=== PATIENT | male | born 1960 ===

== ENCOUNTER 2020-12-19 13:52 | Inpatient (IN) ==
[2020-12-19 14:35] LABS: Basophils # 0.1 10*3/uL (0.0-0.2); Basophils % 0.4 % (0.0-0.8); Eosinophils # 0.1 10*3/uL (0.0-0.87); Eosinophils % 0.6 % (0.00-10.9); Hematocrit 31.2 VOL% (42.0-52.0); Hemoglobin 9.5 GM/DL (14.0-18.0); Immature Granulocytes % 0.8 %; Immature Granulocytes Absolute 0.11 #; Lymphocytes % 7.2 % (21.2-54.2); Mean Corpuscular HGB Conc 30.4 GM/DL (32-36); Mean Corpuscular Volume 75.9 FL (87-102); Mean Platelet Volume 9.5 FL (9.6-12.0); Monocytes % 9.8 % (1.7-12.7); NRBC # 0.02 10*3/uL; Neutrophils % 81.2 % (38.7-73.9); Platelet Count 282 T/CUMM (130-400); Red Blood Count 4.11 MC/CUMM (3.8-5.5); Red Cell Distribution Width 15.4 % (9.3-17.3); White Blood Count 14.1 T/CUMM (4-12)
[2020-12-19 15:06] LABS: Calcium 8.1 MG/DL (8.5-10.1); Osmolality,Calculated 271.2 MOS/KG (273-304)
[2020-12-19] MEDS ORDERED: VANCOMYCIN INJ 1,750 MG in SODIUM CHLORIDE 0.9% 250 ML IV ONE (15:17)
[2020-12-19] MEDS ORDERED: VANCOMYCIN INJ 1,750 MG in SODIUM CHLORIDE 0.9% 500 ML IV ONE (15:30)
[2020-12-19 15:42] LABS: Sedimentation Rate-Westergren 109 MM/HR (0-20)
[2020-12-19] MEDS ORDERED: DEXTROSE 50% 25 GM/50 ML VIAL IV PRN (15:57)
[2020-12-19] MEDS ORDERED: GLUCAGON 1 MG VIAL IM PRN (15:57)
[2020-12-19] MEDS ORDERED: MORPHINE 4 MG/1 ML VIAL IV PRN (15:57)
[2020-12-19] MEDS ORDERED: ONDANSETRON 4 MG/2 ML VIAL IV PRN (15:57)
[2020-12-19 16:49] LABS: Lymphocytes 5 % (20-55); Segmented Neutrophils 86 % (50-85); Total Cells Counted 100
[2020-12-19] MEDS: ENOXAPARIN 40 MG/0.4 ML SYRINGE SUBCUT SCH (18:14)
[2020-12-19] MEDS: SODIUM CHLORIDE 0.9% 1,000 ML IV SCH (18:15)
[2020-12-19] MEDS: PIPERACILLIN/TAZOBACTAM 3,375 MG in SODIUM CHLORIDE 0.9% 100 ML IV SCH (20:48)
[2020-12-20] MEDS: PIPERACILLIN/TAZOBACTAM 3,375 MG in SODIUM CHLORIDE 0.9% 100 ML IV SCH ×3 (03:30→20:24)
[2020-12-20 05:51] LABS: Basophils # 0.1 10*3/uL (0.0-0.2); Basophils % 0.6 % (0.0-0.8); Eosinophils # 0.3 10*3/uL (0.0-0.87); Hematocrit 28.4 VOL% (42.0-52.0); Hemoglobin 8.3 GM/DL (14.0-18.0); Immature Granulocytes % 1.4 %; Immature Granulocytes Absolute 0.17 #; Lymphocytes # 1.2 10*3/uL (1.4-4.0); Lymphocytes % 9.4 % (21.2-54.2); Mean Corpuscular HGB Conc 29.2 GM/DL (32-36); Mean Corpuscular Volume 78.2 FL (87-102); Mean Platelet Volume 9.9 FL (9.6-12.0); Monocytes % 10.7 % (1.7-12.7); NRBC # 0.02 10*3/uL; Neutrophils % 75.9 % (38.7-73.9); Platelet Count 263 T/CUMM (130-400); Red Blood Count 3.63 MC/CUMM (3.8-5.5); Red Cell Distribution Width 15.5 % (9.3-17.3); White Blood Count 12.3 T/CUMM (4-12)
[2020-12-20] MEDS ORDERED: VANCOMYCIN INJ 1,000 MG in SODIUM CHLORIDE 0.9% 250 ML IV SCH (06:00)
[2020-12-20 06:11] LABS: Calcium 7.4 MG/DL (8.5-10.1); Osmolality,Calculated 279.5 MOS/KG (273-304)
[2020-12-20 06:23] LABS: Band Neutrophils 5 % (0-10); Hypochromasia Slight; Lymphocytes 5 % (20-55); Microcytosis 1+; Platelet Estimate Normal; Segmented Neutrophils 83 % (50-85); Total Cells Counted 100
[2020-12-20] MEDS: SODIUM CHLORIDE 0.9% 1,000 ML IV SCH ×3 (08:44→17:11)
[2020-12-20] MEDS ORDERED: POTASSIUM CHLORIDE 20 MEQ TABLET PO ONE (09:06)
[2020-12-20] MEDS: PANTOPRAZOLE 40 MG TABLET PO SCH (09:52)
[2020-12-20] MEDS: VANCOMYCIN INJ 1,750 MG in SODIUM CHLORIDE 0.9% 500 ML IV SCH (09:54)
[2020-12-20] MEDS: ENOXAPARIN 40 MG/0.4 ML SYRINGE SUBCUT SCH (17:11)
[2020-12-20] MEDS: ACETAMINOPHEN 325 MG TABLET PO PRN (17:11)
[2020-12-21] MEDS: VANCOMYCIN INJ 1,750 MG in SODIUM CHLORIDE 0.9% 500 ML IV SCH ×2 (03:01→21:54)
[2020-12-21] MEDS: PIPERACILLIN/TAZOBACTAM 3,375 MG in SODIUM CHLORIDE 0.9% 100 ML IV SCH ×3 (04:41→20:54)
[2020-12-21] MEDS: SODIUM CHLORIDE 0.9% 1,000 ML IV SCH ×3 (08:01→18:08)
[2020-12-21] MEDS: POTASSIUM CHLORIDE 20 MEQ TABLET PO SCH ×2 (09:41→11:54)
[2020-12-21] MEDS: PANTOPRAZOLE 40 MG TABLET PO SCH (09:41)
[2020-12-21] MEDS: INSULIN LISPRO 100 UNIT/ML SUBCUT SCH ×3 (11:48→20:55)
[2020-12-21] MEDS: ENOXAPARIN 40 MG/0.4 ML SYRINGE SUBCUT SCH (17:56)
[2020-12-22] MEDS: SODIUM CHLORIDE 0.9% 1,000 ML IV SCH ×2 (01:17→09:13)
[2020-12-22] MEDS: PIPERACILLIN/TAZOBACTAM 3,375 MG in SODIUM CHLORIDE 0.9% 100 ML IV SCH ×3 (03:25→21:06)
[2020-12-22 05:09] LABS: Basophils # 0.1 10*3/uL (0.0-0.2); Basophils % 0.8 % (0.0-0.8); Eosinophils # 0.5 10*3/uL (0.0-0.87); Hematocrit 26.7 VOL% (42.0-52.0); Hemoglobin 8.1 GM/DL (14.0-18.0); Immature Granulocytes Absolute 1.31 #; Lymphocytes # 1.9 10*3/uL (1.4-4.0); Lymphocytes % 14.4 % (21.2-54.2); Mean Corpuscular HGB Conc 30.3 GM/DL (32-36); Mean Corpuscular Volume 77.8 FL (87-102); Mean Platelet Volume 9.2 FL (9.6-12.0); Monocytes % 8.3 % (1.7-12.7); NRBC # 0.09 10*3/uL; Neutrophils % 62.5 % (38.7-73.9); Platelet Count 288 T/CUMM (130-400); Red Blood Count 3.43 MC/CUMM (3.8-5.5); Red Cell Distribution Width 16.1 % (9.3-17.3); White Blood Count 13.2 T/CUMM (4-12)
[2020-12-22 05:32] LABS: Band Neutrophils 2 % (0-10); Eosinophils 2 % (0-10); Hypochromasia 1+; Lymphocytes 14 % (20-55); Microcytosis 1+; Nucleated Red Blood Cells 1 (0-5); Platelet Estimate Adequate; Segmented Neutrophils 70 % (50-85); Total Cells Counted 100
[2020-12-22 05:40] LABS: % Iron Saturation 8.1 % (18-50); Calcium 7.5 MG/DL (8.5-10.1); Ferritin 68.2 ng/ml (26-388); Osmolality,Calculated 279.3 MOS/KG (273-304); Potassium 3.2 MMOL/L (3.5-5.1)
[2020-12-22] MEDS ORDERED: SODIUM CHLORIDE 0.9% 1,000 ML IV PRN (08:23)
[2020-12-22] MEDS: INSULIN LISPRO 100 UNIT/ML SUBCUT SCH ×4 (08:51→20:53)
[2020-12-22] MEDS: PANTOPRAZOLE 40 MG TABLET PO SCH (09:14)
[2020-12-22] MEDS: FERROUS SULFATE ER 140 MG TABLET PO SCH ×2 (09:15→21:06)
[2020-12-22] MEDS: POTASSIUM CHLORIDE 20 MEQ TABLET PO SCH ×2 (11:55→15:20)
[2020-12-22] MEDS: VANCOMYCIN INJ 1,750 MG in SODIUM CHLORIDE 0.9% 500 ML IV SCH ×2 (19:22→21:06)
[2020-12-22] MEDS: ENOXAPARIN 40 MG/0.4 ML SYRINGE SUBCUT SCH (21:06)
[2020-12-23] MEDS: SODIUM CHLORIDE 0.9% 1,000 ML IV SCH ×3 (02:35→23:08)
[2020-12-23] MEDS: PIPERACILLIN/TAZOBACTAM 3,375 MG in SODIUM CHLORIDE 0.9% 100 ML IV SCH ×2 (03:34→18:46)
[2020-12-23 06:49] LABS: Basophils # 0.1 10*3/uL (0.0-0.2); Basophils % 0.7 % (0.0-0.8); Eosinophils # 0.5 10*3/uL (0.0-0.87); Eosinophils % 3.8 % (0.00-10.9); Hematocrit 31.5 VOL% (42.0-52.0); Hemoglobin 9.6 GM/DL (14.0-18.0); Immature Granulocytes % 9.7 %; Immature Granulocytes Absolute 1.26 #; Lymphocytes # 1.5 10*3/uL (1.4-4.0); Lymphocytes % 11.6 % (21.2-54.2); Mean Corpuscular HGB Conc 30.5 GM/DL (32-36); Mean Corpuscular Volume 78.9 FL (87-102); Mean Platelet Volume 9.7 FL (9.6-12.0); Monocytes % 7.1 % (1.7-12.7); NRBC # 0.11 10*3/uL; Neutrophils % 67.1 % (38.7-73.9); Platelet Count 330 T/CUMM (130-400); Red Blood Count 3.99 MC/CUMM (3.8-5.5); Red Cell Distribution Width 17.2 % (9.3-17.3)
[2020-12-23 07:07] LABS: Bilirubin,Total 0.6 MG/DL (0.2-1.0); Calcium 7.9 MG/DL (8.5-10.1); Osmolality,Calculated 275.4 MOS/KG (273-304); Potassium 3.5 MMOL/L (3.5-5.1); Total Protein 7.1 G/DL (6.4-8.2)
[2020-12-23 07:09] LABS: Eosinophils 3 % (0-10); Hypochromasia 1+; Lymphocytes 12 % (20-55); Microcytosis 1+; Nucleated Red Blood Cells 1 (0-5); Platelet Estimate Adequate; Segmented Neutrophils 83 % (50-85); Total Cells Counted 100
[2020-12-23] MEDS: FERROUS SULFATE ER 140 MG TABLET PO SCH ×2 (09:40→18:45)
[2020-12-23] MEDS: PANTOPRAZOLE 40 MG TABLET PO SCH (09:40)
[2020-12-23] MEDS: POTASSIUM CHLORIDE 20 MEQ TABLET PO SCH ×2 (09:40→20:51)
[2020-12-23] MEDS: INSULIN LISPRO 100 UNIT/ML SUBCUT SCH ×3 (12:26→20:44)
[2020-12-23] MEDS: VANCOMYCIN INJ 1,750 MG in SODIUM CHLORIDE 0.9% 500 ML IV SCH (14:30)
[2020-12-23] MEDS: ENOXAPARIN 40 MG/0.4 ML SYRINGE SUBCUT SCH (18:48)
[2020-12-24] MEDS: VANCOMYCIN INJ 1,750 MG in SODIUM CHLORIDE 0.9% 500 ML IV SCH ×2 (02:11→19:43)
[2020-12-24] MEDS: PIPERACILLIN/TAZOBACTAM 3,375 MG in SODIUM CHLORIDE 0.9% 100 ML IV SCH ×3 (03:07→22:53)
[2020-12-24 05:43] LABS: Basophils # 0.1 10*3/uL (0.0-0.2); Basophils % 0.6 % (0.0-0.8); Eosinophils # 0.4 10*3/uL (0.0-0.87); Eosinophils % 3.5 % (0.00-10.9); Hemoglobin 9.7 GM/DL (14.0-18.0); Immature Granulocytes % 9.2 %; Immature Granulocytes Absolute 1.11 #; Lymphocytes # 1.4 10*3/uL (1.4-4.0); Lymphocytes % 11.9 % (21.2-54.2); Mean Corpuscular HGB Conc 30.3 GM/DL (32-36); Mean Corpuscular Volume 80.2 FL (87-102); Mean Platelet Volume 9.2 FL (9.6-12.0); NRBC # 0.06 10*3/uL; Neutrophils % 66.8 % (38.7-73.9); Platelet Count 306 T/CUMM (130-400); Red Blood Count 3.99 MC/CUMM (3.8-5.5); Red Cell Distribution Width 17.3 % (9.3-17.3)
[2020-12-24 06:03] LABS: Calcium 7.5 MG/DL (8.5-10.1); Osmolality,Calculated 278.3 MOS/KG (273-304); Potassium 3.8 MMOL/L (3.5-5.1)
[2020-12-24 06:05] LABS: Eosinophils 1 % (0-10); Hypochromasia 1+; Lymphocytes 11 % (20-55); Microcytosis 1+; Platelet Estimate Adequate; Segmented Neutrophils 81 % (50-85); Total Cells Counted 100
[2020-12-24] MEDS ORDERED: LIDOCAINE 2% 5 ML VIAL ONE (07:41)
[2020-12-24] MEDS ORDERED: propofoL 200 MG/20 ML VIAL IV ONE (07:41)
[2020-12-24] MEDS ORDERED: MIDAZOLAM 2 MG/2 ML VIAL ONE (07:42)
[2020-12-24] MEDS ORDERED: fentaNYL 100 MCG/2 ML VIAL ONE (07:42)
[2020-12-24] MEDS ORDERED: FAMOTIDINE 20 MG/2 ML VIAL IV ONE (08:25)
[2020-12-24] MEDS ORDERED: HYDROmorphone 2 MG/1 ML VIAL ONE (08:45)
[2020-12-24] MEDS ORDERED: ACETAMINOPHEN INJ 1,000 MG/100 ML VIAL IV ONE (08:58)
[2020-12-24] MEDS ORDERED: ONDANSETRON 4 MG/2 ML VIAL ONE (08:58)
[2020-12-24] MEDS ORDERED: LACTATED RINGERS 1,000 ML IV ONE (08:58)
[2020-12-24] MEDS ORDERED: PHENYLEPHRINE 1 MG/10 ML SYRINGE IV ONE ×2 (08:58→09:15)
[2020-12-24] MEDS ORDERED: ALBUMIN 5% 12.5 GM/250 ML VIAL IV ONE (09:11)
[2020-12-24] MEDS ORDERED: CALCIUM CHLORIDE 1,000 MG/10 ML VIAL IV ONE (09:15)
[2020-12-24] MEDS ORDERED: ePHEDrine 50 MG/ML VIAL ONE (09:20)
[2020-12-24] MEDS ORDERED: SEVOFLURANE 1 UNIT/15 MINUTE INH ONE (09:38)
[2020-12-24] MEDS ORDERED: GLUCAGON 1 MG VIAL IM PRN (10:55)
[2020-12-24] MEDS ORDERED: KETOROLAC 15 MG/1 ML VIAL IV PRN (10:55)
[2020-12-24] MEDS ORDERED: HYDROmorphone 2 MG/1 ML VIAL IV PRN ×2 (10:55)
[2020-12-24] MEDS ORDERED: BISACODYL 5 MG TABLET PO PRN (10:55)
[2020-12-24] MEDS ORDERED: ALBUTEROL/IPRATROPIUM 3 ML NEB RESP TX PRN (10:55)
[2020-12-24] MEDS ORDERED: DEXTROSE 50% 25 GM/50 ML VIAL IV PRN (10:55)
[2020-12-24] MEDS: INSULIN LISPRO 100 UNIT/ML SUBCUT SCH ×4 (11:10→20:52)
[2020-12-24] MEDS: FERROUS SULFATE ER 140 MG TABLET PO SCH ×2 (14:18→17:27)
[2020-12-24] MEDS: POTASSIUM CHLORIDE 20 MEQ TABLET PO SCH ×2 (14:49→20:51)
[2020-12-24] MEDS: PANTOPRAZOLE 40 MG TABLET PO SCH (14:49)
[2020-12-24] MEDS: SODIUM CHLORIDE 0.9% 1,000 ML IV SCH ×2 (16:51→19:45)
[2020-12-25] MEDS: VANCOMYCIN INJ 1,750 MG in SODIUM CHLORIDE 0.9% 500 ML IV SCH (06:06)
[2020-12-25 06:10] LABS: Calcium 7.4 MG/DL (8.5-10.1); Potassium 4.2 MMOL/L (3.5-5.1)
[2020-12-25] MEDS: SODIUM CHLORIDE 0.9% 1,000 ML IV SCH ×3 (06:11→17:01)
[2020-12-25 06:38] LABS: Basophils % 0.3 % (0.0-0.8); Eosinophils # 0.3 10*3/uL (0.0-0.87); Eosinophils % 2.3 % (0.00-10.9); Hematocrit 24.4 VOL% (42.0-52.0); Immature Granulocytes % 3.3 %; Immature Granulocytes Absolute 0.43 #; Lymphocytes # 1.2 10*3/uL (1.4-4.0); Lymphocytes % 9.5 % (21.2-54.2); Mean Corpuscular HGB Conc 30.7 GM/DL (32-36); Mean Corpuscular Volume 81.1 FL (87-102); Mean Platelet Volume 9.4 FL (9.6-12.0); Monocytes % 8.6 % (1.7-12.7); NRBC # 0.04 10*3/uL; Red Cell Distribution Width 17.9 % (9.3-17.3); White Blood Count 13.1 T/CUMM (4-12)
[2020-12-25 06:39] LABS: Hemoglobin 7.5 GM/DL (14.0-18.0); Red Blood Count 3.01 MC/CUMM (3.8-5.5)
[2020-12-25 06:40] LABS: Platelet Count 228 T/CUMM (130-400)
[2020-12-25 07:01] LABS: Eosinophils 5 % (0-10); Hypochromasia Slight; Lymphocytes 8 % (20-55); Metamyelocytes 1 %; Microcytosis Slight; Nucleated Red Blood Cells 1 (0-5); Platelet Estimate Normal; Segmented Neutrophils 79 % (50-85); Total Cells Counted 100
[2020-12-25] MEDS: INSULIN LISPRO 100 UNIT/ML SUBCUT SCH ×4 (07:21→20:38)
[2020-12-25] MEDS: FERROUS SULFATE ER 140 MG TABLET PO SCH ×2 (08:21→17:31)
[2020-12-25] MEDS: POTASSIUM CHLORIDE 20 MEQ TABLET PO SCH ×2 (08:22→20:38)
[2020-12-25] MEDS: PANTOPRAZOLE 40 MG TABLET PO SCH (08:22)
[2020-12-25] MEDS ORDERED: TUBERCULIN SKIN TEST 0.1 ML SYRINGE INTRADERM ONE (09:26)
[2020-12-25] MEDS: PIPERACILLIN/TAZOBACTAM 3,375 MG in SODIUM CHLORIDE 0.9% 100 ML IV SCH ×2 (10:25→16:18)
[2020-12-25] MEDS ORDERED: SODIUM CHLORIDE 0.9% 1,000 ML IV PRN (14:26)
[2020-12-26] MEDS: VANCOMYCIN INJ 1,750 MG in SODIUM CHLORIDE 0.9% 500 ML IV SCH ×2 (01:16→16:15)
[2020-12-26] MEDS: PIPERACILLIN/TAZOBACTAM 3,375 MG in SODIUM CHLORIDE 0.9% 100 ML IV SCH ×3 (03:54→21:37)
[2020-12-26] MEDS: SODIUM CHLORIDE 0.9% 1,000 ML IV SCH ×4 (03:54→23:49)
[2020-12-26 05:06] LABS: Basophils # 0.1 10*3/uL (0.0-0.2); Basophils % 0.4 % (0.0-0.8); Eosinophils # 0.4 10*3/uL (0.0-0.87); Eosinophils % 2.6 % (0.00-10.9); Hematocrit 23.2 VOL% (42.0-52.0); Hemoglobin 7.2 GM/DL (14.0-18.0); Immature Granulocytes % 3.5 %; Immature Granulocytes Absolute 0.49 #; Lymphocytes # 1.3 10*3/uL (1.4-4.0); Mean Corpuscular Volume 79.2 FL (87-102); Mean Platelet Volume 9.5 FL (9.6-12.0); Monocytes % 8.9 % (1.7-12.7); NRBC # 0.02 10*3/uL; Neutrophils % 75.6 % (38.7-73.9); Platelet Count 232 T/CUMM (130-400); Red Blood Count 2.93 MC/CUMM (3.8-5.5); Red Cell Distribution Width 17.8 % (9.3-17.3); White Blood Count 14.1 T/CUMM (4-12)
[2020-12-26 05:29] LABS: Hypochromasia 2+; Microcytosis 1+; Platelet Estimate Adequate
[2020-12-26 05:57] LABS: Calcium 7.5 MG/DL (8.5-10.1); Osmolality,Calculated 274.7 MOS/KG (273-304); Potassium 3.9 MMOL/L (3.5-5.1)
[2020-12-26] MEDS: POTASSIUM CHLORIDE 20 MEQ TABLET PO SCH ×2 (09:22→21:37)
[2020-12-26] MEDS: PANTOPRAZOLE 40 MG TABLET PO SCH (09:22)
[2020-12-26] MEDS: FERROUS SULFATE ER 140 MG TABLET PO SCH ×2 (09:22→16:15)
[2020-12-26] MEDS: INSULIN LISPRO 100 UNIT/ML SUBCUT SCH ×4 (09:36→21:37)
[2020-12-26 14:56] LABS: Bilirubin,Urine Negative (Negative); Blood, Urine Moderate mg/dL (Negative); Glucose,Urine (UA) Negative (Negative); Ketones,Urine Negative (Negative); Mucus,Urine Occasional /LPF (Occasional); Nitrite,Urine Negative (Negative); Protein,Urine Negative; RBC,Urine 1 /HPF (0-4); Squamous Epithelial Cell,Urine Occasional /HPF (0-10); Urine Appearance CLEAR (Clear); Urine Color Yellow (Yellow); Urine Specific Gravity 1.011 (1.001-1.035); Urine Urobilinogen < 2.0 EU/DL (0.2-1.0); WBC,Urine 1 /HPF (0-6)
[2020-12-27] MEDS: PIPERACILLIN/TAZOBACTAM 3,375 MG in SODIUM CHLORIDE 0.9% 100 ML IV SCH (03:04)
[2020-12-27] MEDS: VANCOMYCIN INJ 1,750 MG in SODIUM CHLORIDE 0.9% 500 ML IV SCH ×2 (04:58→18:43)
[2020-12-27 06:08] LABS: Basophils % 0.3 % (0.0-0.8); Eosinophils # 0.5 10*3/uL (0.0-0.87); Eosinophils % 4.3 % (0.00-10.9); Hematocrit 24.2 VOL% (42.0-52.0); Hemoglobin 7.3 GM/DL (14.0-18.0); Immature Granulocytes % 2.5 %; Immature Granulocytes Absolute 0.32 #; Lymphocytes # 1.2 10*3/uL (1.4-4.0); Lymphocytes % 9.8 % (21.2-54.2); Mean Corpuscular HGB Conc 30.2 GM/DL (32-36); Mean Corpuscular Volume 81.5 FL (87-102); Mean Platelet Volume 9.8 FL (9.6-12.0); Monocytes % 8.1 % (1.7-12.7); NRBC # 0.02 10*3/uL; Platelet Count 282 T/CUMM (130-400); Red Blood Count 2.97 MC/CUMM (3.8-5.5); Red Cell Distribution Width 18.2 % (9.3-17.3); White Blood Count 12.6 T/CUMM (4-12)
[2020-12-27 06:32] LABS: Calcium 7.8 MG/DL (8.5-10.1); Osmolality,Calculated 273.7 MOS/KG (273-304); Potassium 4.2 MMOL/L (3.5-5.1)
[2020-12-27] MEDS: INSULIN LISPRO 100 UNIT/ML SUBCUT SCH ×4 (07:31→20:02)
[2020-12-27] MEDS: PANTOPRAZOLE 40 MG TABLET PO SCH (09:13)
[2020-12-27] MEDS: POTASSIUM CHLORIDE 20 MEQ TABLET PO SCH ×2 (09:14→20:59)
[2020-12-27] MEDS: FERROUS SULFATE ER 140 MG TABLET PO SCH ×2 (09:14→17:13)
[2020-12-27] MEDS: SODIUM CHLORIDE 0.9% 1,000 ML IV SCH (10:06)
[2020-12-27] MEDS ORDERED: ASPIRIN EC 81 MG TABLET PO SCH (10:30)
[2020-12-27] MEDS: ATORVASTATIN 40 MG TABLET PO SCH (20:59)
[2020-12-28] MEDS: VANCOMYCIN INJ 1,750 MG in SODIUM CHLORIDE 0.9% 500 ML IV SCH ×2 (04:45→16:30)
[2020-12-28 05:47] LABS: Basophils % 0.4 % (0.0-0.8); Eosinophils # 0.4 10*3/uL (0.0-0.87); Eosinophils % 3.7 % (0.00-10.9); Hematocrit 26.9 VOL% (42.0-52.0); Hemoglobin 8.5 GM/DL (14.0-18.0); Immature Granulocytes % 1.7 %; Immature Granulocytes Absolute 0.19 #; Lymphocytes # 1.2 10*3/uL (1.4-4.0); Lymphocytes % 10.8 % (21.2-54.2); Mean Corpuscular HGB Conc 31.6 GM/DL (32-36); Mean Corpuscular Volume 81.8 FL (87-102); Mean Platelet Volume 9.4 FL (9.6-12.0); Monocytes % 7.8 % (1.7-12.7); NRBC # 0.03 10*3/uL; Neutrophils % 75.6 % (38.7-73.9); Platelet Count 294 T/CUMM (130-400); Red Blood Count 3.29 MC/CUMM (3.8-5.5); Red Cell Distribution Width 17.9 % (9.3-17.3)
[2020-12-28 06:06] LABS: Calcium 8.2 MG/DL (8.5-10.1)
[2020-12-28 06:09] LABS: Risk Ratio 2.54
[2020-12-28] MEDS: INSULIN LISPRO 100 UNIT/ML SUBCUT SCH ×4 (07:40→21:34)
[2020-12-28] MEDS: POTASSIUM CHLORIDE 20 MEQ TABLET PO SCH ×2 (08:47→21:33)
[2020-12-28] MEDS: PANTOPRAZOLE 40 MG TABLET PO SCH (08:47)
[2020-12-28] MEDS: FERROUS SULFATE ER 140 MG TABLET PO SCH ×2 (08:47→16:32)
[2020-12-28] MEDS: AMOXICILLIN/CLAV 875 MG TABLET PO SCH ×2 (10:06→21:33)
[2020-12-28] MEDS: ATORVASTATIN 40 MG TABLET PO SCH (21:33)
[2020-12-29] MEDS: ACETAMINOPHEN 325 MG TABLET PO PRN ×2 (01:09→20:51)
[2020-12-29] MEDS: VANCOMYCIN INJ 1,750 MG in SODIUM CHLORIDE 0.9% 500 ML IV SCH ×2 (03:26→21:30)
[2020-12-29 05:46] LABS: Basophils # 0.1 10*3/uL (0.0-0.2); Basophils % 0.5 % (0.0-0.8); Eosinophils # 0.2 10*3/uL (0.0-0.87); Eosinophils % 2.4 % (0.00-10.9); Hematocrit 27.7 VOL% (42.0-52.0); Hemoglobin 8.5 GM/DL (14.0-18.0); Immature Granulocytes % 1.6 %; Immature Granulocytes Absolute 0.15 #; Lymphocytes # 1.1 10*3/uL (1.4-4.0); Lymphocytes % 11.6 % (21.2-54.2); Mean Corpuscular HGB Conc 30.7 GM/DL (32-36); Mean Corpuscular Volume 82.4 FL (87-102); Mean Platelet Volume 9.5 FL (9.6-12.0); Monocytes % 10.3 % (1.7-12.7); NRBC # 0.03 10*3/uL; Neutrophils % 73.6 % (38.7-73.9); Platelet Count 254 T/CUMM (130-400); Red Blood Count 3.36 MC/CUMM (3.8-5.5); Red Cell Distribution Width 18.4 % (9.3-17.3); White Blood Count 9.6 T/CUMM (4-12)
[2020-12-29 06:09] LABS: Calcium 8.1 MG/DL (8.5-10.1)
[2020-12-29] MEDS: INSULIN LISPRO 100 UNIT/ML SUBCUT SCH ×4 (08:17→22:15)
[2020-12-29] MEDS: FERROUS SULFATE ER 140 MG TABLET PO SCH ×2 (09:57→16:01)
[2020-12-29] MEDS: AMOXICILLIN/CLAV 875 MG TABLET PO SCH (09:58)
[2020-12-29] MEDS: PANTOPRAZOLE 40 MG TABLET PO SCH (09:58)
[2020-12-29] MEDS: POTASSIUM CHLORIDE 20 MEQ TABLET PO SCH ×2 (09:58→20:51)
[2020-12-29] MEDS ORDERED: LIDOCAINE 2% 5 ML VIAL ONE (13:52)
[2020-12-29] MEDS ORDERED: propofoL 200 MG/20 ML VIAL IV ONE (13:52)
[2020-12-29] MEDS ORDERED: BISACODYL 5 MG TABLET PO ONE (15:00)
[2020-12-29] MEDS ORDERED: SKIN HEALING OINT (AQUAPHOR) 50 GM TUBE TOP PRN (15:04)
[2020-12-29] MEDS: PIPERACILLIN/TAZOBACTAM 3,375 MG in SODIUM CHLORIDE 0.9% 100 ML IV SCH (15:17)
[2020-12-29] MEDS ORDERED: POLYETHYLENE GLYCOL POWDER 255 GM BOTTLE PO ONE (17:00)
[2020-12-29 20:50] LABS: Bacteria,Urine Occasional /HPF (Few); Bilirubin,Urine Negative (Negative); Blood, Urine Small mg/dL (Negative); Glucose,Urine (UA) Negative (Negative); Ketones,Urine Negative (Negative); Mucus,Urine Occasional /LPF (Occasional); Nitrite,Urine Negative (Negative); Protein,Urine Negative; RBC,Urine <1 /HPF (0-4); Squamous Epithelial Cell,Urine Occasional /HPF (0-10); Urine Appearance CLEAR (Clear); Urine Color Straw (Yellow); Urine Specific Gravity 1.003 (1.001-1.035); Urine Urobilinogen < 2.0 EU/DL (0.2-1.0)
[2020-12-29] MEDS: ATORVASTATIN 40 MG TABLET PO SCH (20:51)
[2020-12-30] MEDS: PIPERACILLIN/TAZOBACTAM 3,375 MG in SODIUM CHLORIDE 0.9% 100 ML IV SCH ×3 (00:49→16:46)
[2020-12-30 05:16] LABS: Basophils # 0.1 10*3/uL (0.0-0.2); Basophils % 0.6 % (0.0-0.8); Eosinophils # 0.2 10*3/uL (0.0-0.87); Eosinophils % 2.9 % (0.00-10.9); Hematocrit 26.3 VOL% (42.0-52.0); Hemoglobin 8.3 GM/DL (14.0-18.0); Immature Granulocytes % 1.7 %; Immature Granulocytes Absolute 0.14 #; Lymphocytes # 1.1 10*3/uL (1.4-4.0); Lymphocytes % 13.6 % (21.2-54.2); Mean Corpuscular HGB Conc 31.6 GM/DL (32-36); Mean Corpuscular Volume 82.4 FL (87-102); Mean Platelet Volume 9.1 FL (9.6-12.0); NRBC # 0.02 10*3/uL; Neutrophils % 70.2 % (38.7-73.9); Platelet Count 267 T/CUMM (130-400); Red Blood Count 3.19 MC/CUMM (3.8-5.5); Red Cell Distribution Width 18.5 % (9.3-17.3); White Blood Count 8.2 T/CUMM (4-12)
[2020-12-30 05:36] LABS: Calcium 8.2 MG/DL (8.5-10.1); Osmolality,Calculated 274.7 MOS/KG (273-304)
[2020-12-30] MEDS ORDERED: MAGNESIUM CITRATE 300 ML BOTTLE PO ONE (06:00)
[2020-12-30] MEDS: INSULIN LISPRO 100 UNIT/ML SUBCUT SCH ×4 (08:18→22:26)
[2020-12-30] MEDS: FERROUS SULFATE ER 140 MG TABLET PO SCH ×2 (09:20→16:47)
[2020-12-30] MEDS: PANTOPRAZOLE 40 MG TABLET PO SCH (09:21)
[2020-12-30] MEDS: POTASSIUM CHLORIDE 20 MEQ TABLET PO SCH ×2 (09:21→22:31)
[2020-12-30] MEDS: VANCOMYCIN INJ 1,750 MG in SODIUM CHLORIDE 0.9% 500 ML IV SCH ×2 (11:10→22:40)
[2020-12-30] MEDS ORDERED: POLYETHYLENE GLYCOL POWDER 255 GM BOTTLE PO ONE (14:00)
[2020-12-30] MEDS: ATORVASTATIN 40 MG TABLET PO SCH (22:32)
[2020-12-31] MEDS: PIPERACILLIN/TAZOBACTAM 3,375 MG in SODIUM CHLORIDE 0.9% 100 ML IV SCH ×3 (00:27→17:52)
[2020-12-31 06:40] LABS: Basophils # 0.1 10*3/uL (0.0-0.2); Basophils % 0.8 % (0.0-0.8); Eosinophils # 0.2 10*3/uL (0.0-0.87); Eosinophils % 2.8 % (0.00-10.9); Hematocrit 26.9 VOL% (42.0-52.0); Immature Granulocytes % 1.4 %; Immature Granulocytes Absolute 0.12 #; Lymphocytes # 1.3 10*3/uL (1.4-4.0); Lymphocytes % 15.2 % (21.2-54.2); Mean Corpuscular HGB Conc 29.7 GM/DL (32-36); Mean Corpuscular Volume 84.9 FL (87-102); Mean Platelet Volume 9.4 FL (9.6-12.0); Monocytes % 9.3 % (1.7-12.7); Neutrophils % 70.5 % (38.7-73.9); Platelet Count 293 T/CUMM (130-400); Red Blood Count 3.17 MC/CUMM (3.8-5.5); Red Cell Distribution Width 18.6 % (9.3-17.3); White Blood Count 8.5 T/CUMM (4-12)
[2020-12-31 06:46] LABS: PT Patient Result 11.6 SECS (9.8-11.9)
[2020-12-31 06:51] LABS: Osmolality,Calculated 276.4 MOS/KG (273-304); Potassium 3.6 MMOL/L (3.5-5.1)
[2020-12-31] MEDS: INSULIN LISPRO 100 UNIT/ML SUBCUT SCH ×4 (08:13→20:21)
[2020-12-31] MEDS: POTASSIUM CHLORIDE 20 MEQ TABLET PO SCH ×2 (09:34→20:21)
[2020-12-31] MEDS: FERROUS SULFATE ER 140 MG TABLET PO SCH ×2 (09:34→17:53)
[2020-12-31] MEDS: PANTOPRAZOLE 40 MG TABLET PO SCH (09:35)
[2020-12-31] MEDS: LACTATED RINGERS 500 ML IV SCH (12:55)
[2020-12-31] MEDS: VANCOMYCIN INJ 1,750 MG in SODIUM CHLORIDE 0.9% 500 ML IV SCH (13:11)
[2020-12-31] MEDS ORDERED: LIDOCAINE 2% 5 ML VIAL ONE (13:13)
[2020-12-31] MEDS ORDERED: propofoL 200 MG/20 ML VIAL IV ONE ×2 (13:13→13:48)
[2020-12-31] MEDS: ATORVASTATIN 40 MG TABLET PO SCH (20:21)
[2021-01-01] MEDS: PIPERACILLIN/TAZOBACTAM 3,375 MG in SODIUM CHLORIDE 0.9% 100 ML IV SCH ×3 (00:40→16:40)
[2021-01-01 06:38] LABS: Basophils # 0.1 10*3/uL (0.0-0.2); Basophils % 0.7 % (0.0-0.8); Eosinophils # 0.2 10*3/uL (0.0-0.87); Eosinophils % 3.3 % (0.00-10.9); Hematocrit 27.6 VOL% (42.0-52.0); Hemoglobin 8.1 GM/DL (14.0-18.0); Immature Granulocytes Absolute 0.07 #; Lymphocytes % 14.2 % (21.2-54.2); Mean Corpuscular HGB Conc 29.3 GM/DL (32-36); Mean Corpuscular Volume 87.1 FL (87-102); Mean Platelet Volume 10.7 FL (9.6-12.0); Monocytes % 8.8 % (1.7-12.7); Platelet Count 247 T/CUMM (130-400); Red Blood Count 3.17 MC/CUMM (3.8-5.5); White Blood Count 6.7 T/CUMM (4-12)
[2021-01-01 06:53] LABS: Osmolality,Calculated 271.8 MOS/KG (273-304); Potassium 3.8 MMOL/L (3.5-5.1)
[2021-01-01] MEDS: FERROUS SULFATE ER 140 MG TABLET PO SCH ×2 (08:08→16:48)
[2021-01-01] MEDS: INSULIN LISPRO 100 UNIT/ML SUBCUT SCH ×4 (08:14→20:27)
[2021-01-01] MEDS: PANTOPRAZOLE 40 MG TABLET PO SCH (09:10)
[2021-01-01] MEDS: POTASSIUM CHLORIDE 20 MEQ TABLET PO SCH ×2 (09:10→20:27)
[2021-01-01] MEDS ORDERED: GABAPENTIN 300 MG CAPSULE PO ONE (11:15)
[2021-01-01] MEDS ORDERED: ALVIMOPAN 12 MG CAPSULE PO ONE (11:15)
[2021-01-01] MEDS ORDERED: IBUPROFEN 600 MG TABLET PO ONE (11:15)
[2021-01-01] MEDS ORDERED: ERTAPENEM 1,000 MG in SODIUM CHLORIDE 0.9% 100 ML IV ONE (11:15)
[2021-01-01] MEDS: LACTATED RINGERS 500 ML IV SCH (16:03)
[2021-01-01] MEDS: ATORVASTATIN 40 MG TABLET PO SCH (20:28)
[2021-01-02] MEDS: PIPERACILLIN/TAZOBACTAM 3,375 MG in SODIUM CHLORIDE 0.9% 100 ML IV SCH ×3 (00:32→17:22)
[2021-01-02 05:47] LABS: Basophils # 0.1 10*3/uL (0.0-0.2); Basophils % 0.7 % (0.0-0.8); Eosinophils # 0.3 10*3/uL (0.0-0.87); Eosinophils % 3.7 % (0.00-10.9); Hematocrit 26.3 VOL% (42.0-52.0); Hemoglobin 7.9 GM/DL (14.0-18.0); Immature Granulocytes % 1.5 %; Lymphocytes # 1.3 10*3/uL (1.4-4.0); Lymphocytes % 18.9 % (21.2-54.2); Mean Corpuscular Volume 85.7 FL (87-102); Mean Platelet Volume 9.1 FL (9.6-12.0); Monocytes % 7.3 % (1.7-12.7); Neutrophils % 67.9 % (38.7-73.9); Red Blood Count 3.07 MC/CUMM (3.8-5.5); Red Cell Distribution Width 19.3 % (9.3-17.3); White Blood Count 6.7 T/CUMM (4-12)
[2021-01-02 05:56] LABS: Platelet Count 351 T/CUMM (130-400)
[2021-01-02 06:01] LABS: Albumin 2.2 G/DL (3.4-5.0); Bilirubin,Total 0.9 MG/DL (0.2-1.0); Calcium 8.1 MG/DL (8.5-10.1); Osmolality,Calculated 279.3 MOS/KG (273-304); Potassium 4.1 MMOL/L (3.5-5.1); Total Protein 7.5 G/DL (6.4-8.2)
[2021-01-02] MEDS ORDERED: SODIUM CHLORIDE 0.9% 1,000 ML IV PRN (08:00)
[2021-01-02] MEDS: PANTOPRAZOLE 40 MG TABLET PO SCH (08:14)
[2021-01-02] MEDS: POTASSIUM CHLORIDE 20 MEQ TABLET PO SCH ×2 (08:14→21:23)
[2021-01-02] MEDS: INSULIN LISPRO 100 UNIT/ML SUBCUT SCH ×4 (09:05→22:02)
[2021-01-02] MEDS: FERROUS SULFATE ER 140 MG TABLET PO SCH ×2 (09:06→18:00)
[2021-01-02] MEDS: ATORVASTATIN 40 MG TABLET PO SCH (21:23)
[2021-01-02] MEDS: LACTATED RINGERS 500 ML IV SCH (23:10)
[2021-01-03] MEDS: PIPERACILLIN/TAZOBACTAM 3,375 MG in SODIUM CHLORIDE 0.9% 100 ML IV SCH ×4 (00:02→23:47)
[2021-01-03 06:06] LABS: Basophils # 0.1 10*3/uL (0.0-0.2); Basophils % 0.8 % (0.0-0.8); Eosinophils # 0.3 10*3/uL (0.0-0.87); Eosinophils % 3.5 % (0.00-10.9); Hematocrit 27.5 VOL% (42.0-52.0); Hemoglobin 8.4 GM/DL (14.0-18.0); Immature Granulocytes Absolute 0.14 #; Lymphocytes # 1.4 10*3/uL (1.4-4.0); Lymphocytes % 20.1 % (21.2-54.2); Mean Corpuscular HGB Conc 30.5 GM/DL (32-36); Mean Corpuscular Volume 84.6 FL (87-102); Mean Platelet Volume 9.4 FL (9.6-12.0); Monocytes % 7.9 % (1.7-12.7); NRBC # 0.02 10*3/uL; Neutrophils % 65.7 % (38.7-73.9); Platelet Count 348 T/CUMM (130-400); Red Blood Count 3.25 MC/CUMM (3.8-5.5); Red Cell Distribution Width 19.7 % (9.3-17.3); White Blood Count 7.1 T/CUMM (4-12)
[2021-01-03 06:30] LABS: Calcium 8.4 MG/DL (8.5-10.1); Osmolality,Calculated 271.8 MOS/KG (273-304); Potassium 4.1 MMOL/L (3.5-5.1)
[2021-01-03] MEDS: PANTOPRAZOLE 40 MG TABLET PO SCH (08:13)
[2021-01-03] MEDS: POTASSIUM CHLORIDE 20 MEQ TABLET PO SCH ×2 (08:13→21:01)
[2021-01-03] MEDS: INSULIN LISPRO 100 UNIT/ML SUBCUT SCH ×4 (09:07→21:22)
[2021-01-03] MEDS: FERROUS SULFATE ER 140 MG TABLET PO SCH ×2 (11:45→17:41)
[2021-01-03] MEDS: ATORVASTATIN 40 MG TABLET PO SCH (21:01)
[2021-01-04 05:07] LABS: Basophils # 0.1 10*3/uL (0.0-0.2); Basophils % 0.8 % (0.0-0.8); Eosinophils # 0.3 10*3/uL (0.0-0.87); Eosinophils % 2.9 % (0.00-10.9); Hematocrit 29.8 VOL% (42.0-52.0); Hemoglobin 8.8 GM/DL (14.0-18.0); Immature Granulocytes % 1.8 %; Immature Granulocytes Absolute 0.17 #; Lymphocytes # 1.4 10*3/uL (1.4-4.0); Lymphocytes % 14.2 % (21.2-54.2); Mean Corpuscular HGB Conc 29.5 GM/DL (32-36); Mean Corpuscular Volume 87.1 FL (87-102); Mean Platelet Volume 9.3 FL (9.6-12.0); Monocytes % 6.2 % (1.7-12.7); NRBC # 0.02 10*3/uL; Neutrophils % 74.1 % (38.7-73.9); Platelet Count 343 T/CUMM (130-400); Red Blood Count 3.42 MC/CUMM (3.8-5.5); Red Cell Distribution Width 19.8 % (9.3-17.3); White Blood Count 9.6 T/CUMM (4-12)
[2021-01-04 05:24] LABS: Calcium 8.7 MG/DL (8.5-10.1); Osmolality,Calculated 268.1 MOS/KG (273-304); Potassium 4.1 MMOL/L (3.5-5.1)
[2021-01-04] MEDS: INSULIN LISPRO 100 UNIT/ML SUBCUT SCH ×4 (09:22→20:49)
[2021-01-04] MEDS: PIPERACILLIN/TAZOBACTAM 3,375 MG in SODIUM CHLORIDE 0.9% 100 ML IV SCH ×3 (09:23→23:36)
[2021-01-04] MEDS: POTASSIUM CHLORIDE 20 MEQ TABLET PO SCH ×2 (09:23→21:10)
[2021-01-04] MEDS: PANTOPRAZOLE 40 MG TABLET PO SCH (09:23)
[2021-01-04] MEDS: LACTATED RINGERS 500 ML IV SCH (09:31)
[2021-01-04] MEDS: FERROUS SULFATE ER 140 MG TABLET PO SCH (10:12)
[2021-01-04] MEDS: FERROUS SULFATE 325 MG TABLET PO SCH (16:17)
[2021-01-04] MEDS ORDERED: POLYETHYLENE GLYCOL POWDER 255 GM BOTTLE PO ONE (17:00)
[2021-01-04] MEDS: ATORVASTATIN 40 MG TABLET PO SCH (21:10)
[2021-01-05] MEDS ORDERED: ERTAPENEM 1,000 MG in SODIUM CHLORIDE 0.9% 100 ML IV ONE (06:00)
[2021-01-05 07:04] LABS: Calcium 8.5 MG/DL (8.5-10.1); Osmolality,Calculated 266.2 MOS/KG (273-304); Potassium 4.1 MMOL/L (3.5-5.1)
[2021-01-05 07:17] LABS: Basophils # 0.1 10*3/uL (0.0-0.2); Basophils % 0.7 % (0.0-0.8); Eosinophils # 0.3 10*3/uL (0.0-0.87); Eosinophils % 2.5 % (0.00-10.9); Hematocrit 27.4 VOL% (42.0-52.0); Hemoglobin 8.2 GM/DL (14.0-18.0); Immature Granulocytes % 1.7 %; Immature Granulocytes Absolute 0.17 #; Lymphocytes # 1.2 10*3/uL (1.4-4.0); Lymphocytes % 11.9 % (21.2-54.2); Mean Corpuscular HGB Conc 29.9 GM/DL (32-36); Mean Corpuscular Volume 86.2 FL (87-102); Monocytes % 7.3 % (1.7-12.7); NRBC # 0.02 10*3/uL; Neutrophils % 75.9 % (38.7-73.9); Platelet Count 308 T/CUMM (130-400); Red Blood Count 3.18 MC/CUMM (3.8-5.5); Red Cell Distribution Width 20.1 % (9.3-17.3); White Blood Count 10.2 T/CUMM (4-12)
[2021-01-05] MEDS: LACTATED RINGERS 500 ML IV SCH (07:24)
[2021-01-05] MEDS: INSULIN LISPRO 100 UNIT/ML SUBCUT SCH ×4 (07:37→19:06)
[2021-01-05] MEDS: FERROUS SULFATE 325 MG TABLET PO SCH ×2 (07:37→16:34)
[2021-01-05] MEDS: POTASSIUM CHLORIDE 20 MEQ TABLET PO SCH ×2 (08:20→20:57)
[2021-01-05] MEDS: PANTOPRAZOLE 40 MG TABLET PO SCH (08:20)
[2021-01-05] MEDS: PIPERACILLIN/TAZOBACTAM 3,375 MG in SODIUM CHLORIDE 0.9% 100 ML IV SCH ×2 (08:36→16:34)
[2021-01-05] MEDS ORDERED: propofoL 200 MG/20 ML VIAL IV ONE (08:48)
[2021-01-05] MEDS ORDERED: MIDAZOLAM 2 MG/2 ML VIAL ONE (08:48)
[2021-01-05] MEDS ORDERED: LIDOCAINE 2% 5 ML VIAL ONE (08:48)
[2021-01-05] MEDS ORDERED: fentaNYL 100 MCG/2 ML VIAL ONE (08:48)
[2021-01-05] MEDS: LACTATED RINGERS 1,000 ML IV SCH (09:40)
[2021-01-05] MEDS ORDERED: FAMOTIDINE 20 MG/2 ML VIAL IV ONE (09:42)
[2021-01-05] MEDS ORDERED: ONDANSETRON 4 MG/2 ML VIAL ONE (09:54)
[2021-01-05] MEDS ORDERED: SEVOFLURANE 1 UNIT/15 MINUTE INH ONE (10:13)
[2021-01-05] MEDS: ATORVASTATIN 40 MG TABLET PO SCH (20:57)
[2021-01-05] MEDS: GABAPENTIN 300 MG CAPSULE PO SCH (20:57)
[2021-01-06] MEDS ORDERED: ERTAPENEM 1,000 MG in SODIUM CHLORIDE 0.9% 100 ML IV ONE (06:00)
[2021-01-06] MEDS ORDERED: LIDOCAINE 2% 5 ML VIAL ONE (06:30)
[2021-01-06] MEDS ORDERED: DEXAMETHASONE 4 MG/1 ML VIAL ONE (06:30)
[2021-01-06] MEDS ORDERED: ROCURONIUM 50 MG/5 ML VIAL IV ONE (06:30)
[2021-01-06] MEDS ORDERED: EPINEPHrine 1 MG/ML VIAL ONE (06:30)
[2021-01-06] MEDS ORDERED: ONDANSETRON 4 MG/2 ML VIAL ONE (06:30)
[2021-01-06] MEDS ORDERED: propofoL 200 MG/20 ML VIAL IV ONE (06:30)
[2021-01-06] MEDS ORDERED: DEXMEDETOMIDINE 200 MCG/2 ML VIAL ONE (06:30)
[2021-01-06] MEDS ORDERED: KETAMINE 500 MG/10 ML VIAL ONE (06:31)
[2021-01-06] MEDS ORDERED: MIDAZOLAM 2 MG/2 ML VIAL ONE (06:31)
[2021-01-06] MEDS ORDERED: BUPIVACAINE 0.5% 50 ML VIAL ONE (06:37)
[2021-01-06] MEDS: INSULIN LISPRO 100 UNIT/ML SUBCUT SCH ×4 (06:49→21:54)
[2021-01-06] MEDS ORDERED: ALBUMIN 5% 12.5 GM/250 ML VIAL IV ONE (07:17)
[2021-01-06] MEDS ORDERED: METOCLOPRAMIDE 10 MG/2 ML VIAL ONE (07:48)
[2021-01-06] MEDS ORDERED: FAMOTIDINE 20 MG/2 ML VIAL IV ONE (07:48)
[2021-01-06] MEDS: LACTATED RINGERS 500 ML IV SCH (08:08)
[2021-01-06] MEDS: FERROUS SULFATE 325 MG TABLET PO SCH ×2 (08:08→16:14)
[2021-01-06] MEDS: POTASSIUM CHLORIDE 20 MEQ TABLET PO SCH ×2 (08:08→21:03)
[2021-01-06] MEDS: PANTOPRAZOLE 40 MG TABLET PO SCH (08:09)
[2021-01-06] MEDS: LACTATED RINGERS 1,000 ML IV SCH (08:30)
[2021-01-06] MEDS ORDERED: DESFLURANE 1 UNIT/15 MINUTE INH ONE ×2 (08:46→09:17)
[2021-01-06] MEDS ORDERED: PHENYLEPHRINE 1 MG/10 ML SYRINGE IV ONE (08:46)
[2021-01-06] MEDS ORDERED: CALCIUM CHLORIDE 1,000 MG/10 ML VIAL IV ONE (08:51)
[2021-01-06] MEDS ORDERED: GLYCOPYRROLATE 0.4 MG/2 ML VIAL ONE ×2 (09:08→09:58)
[2021-01-06] MEDS ORDERED: NEOSTIGMINE 10 MG/10 ML VIAL ONE (09:08)
[2021-01-06] MEDS ORDERED: KETOROLAC 30 MG/1 ML VIAL ONE (09:36)
[2021-01-06 09:51] LABS: Bilirubin,Urine Negative (Negative); Blood, Urine Negative (Negative); Glucose,Urine (UA) Negative (Negative); Ketones,Urine Negative (Negative); Mucus,Urine Occasional /LPF (Occasional); Nitrite,Urine Negative (Negative); Protein,Urine Negative; RBC,Urine 2 /HPF (0-4); Urine Appearance CLEAR (Clear); Urine Color Yellow (Yellow); Urine Specific Gravity 1.011 (1.001-1.035); Urine Urobilinogen < 2.0 EU/DL (0.2-1.0)
[2021-01-06] MEDS ORDERED: GLYCOPYRROLATE 0.4 MG/2 ML VIAL IV ONE (10:17)
[2021-01-06] MEDS: GABAPENTIN 300 MG CAPSULE PO SCH (21:03)
[2021-01-06] MEDS: ATORVASTATIN 40 MG TABLET PO SCH (21:03)
[2021-01-07 05:12] LABS: Basophils % 0.2 % (0.0-0.8); Hematocrit 25.9 VOL% (42.0-52.0); Hemoglobin 7.7 GM/DL (14.0-18.0); Immature Granulocytes % 0.9 %; Immature Granulocytes Absolute 0.12 #; Lymphocytes # 1.1 10*3/uL (1.4-4.0); Lymphocytes % 8.3 % (21.2-54.2); Mean Corpuscular HGB Conc 29.7 GM/DL (32-36); Mean Corpuscular Volume 87.5 FL (87-102); Mean Platelet Volume 9.1 FL (9.6-12.0); Monocytes % 8.7 % (1.7-12.7); Neutrophils % 81.9 % (38.7-73.9); Platelet Count 335 T/CUMM (130-400); Red Blood Count 2.96 MC/CUMM (3.8-5.5); White Blood Count 12.7 T/CUMM (4-12)
[2021-01-07 05:41] LABS: Albumin 2.6 G/DL (3.4-5.0); Bilirubin,Total 1.4 MG/DL (0.2-1.0); Calcium 8.6 MG/DL (8.5-10.1); Osmolality,Calculated 271.8 MOS/KG (273-304); Potassium 4.1 MMOL/L (3.5-5.1); Total Protein 7.5 G/DL (6.4-8.2)
[2021-01-07] MEDS: INSULIN LISPRO 100 UNIT/ML SUBCUT SCH ×4 (07:19→20:07)
[2021-01-07] MEDS: LACTATED RINGERS 500 ML IV SCH (08:00)
[2021-01-07] MEDS: LACTATED RINGERS 1,000 ML IV SCH ×2 (09:08→18:27)
[2021-01-07] MEDS: FERROUS SULFATE 325 MG TABLET PO SCH ×2 (10:40→18:01)
[2021-01-07] MEDS: PANTOPRAZOLE 40 MG TABLET PO SCH (10:41)
[2021-01-07] MEDS: POTASSIUM CHLORIDE 20 MEQ TABLET PO SCH ×2 (10:41→21:08)
[2021-01-07] MEDS: GABAPENTIN 300 MG CAPSULE PO SCH (21:08)
[2021-01-07] MEDS: ATORVASTATIN 40 MG TABLET PO SCH (21:08)
[2021-01-08] MEDS: LACTATED RINGERS 1,000 ML IV SCH ×3 (04:48→21:58)
[2021-01-08 05:35] LABS: Basophils % 0.4 % (0.0-0.8); Eosinophils # 0.4 10*3/uL (0.0-0.87); Eosinophils % 3.1 % (0.00-10.9); Immature Granulocytes % 0.7 %; Immature Granulocytes Absolute 0.08 #; Lymphocytes # 1.2 10*3/uL (1.4-4.0); Lymphocytes % 10.4 % (21.2-54.2); Mean Corpuscular HGB Conc 30.8 GM/DL (32-36); Mean Corpuscular Volume 85.5 FL (87-102); Monocytes % 9.3 % (1.7-12.7); Neutrophils % 76.1 % (38.7-73.9); Platelet Count 322 T/CUMM (130-400); Red Blood Count 3.04 MC/CUMM (3.8-5.5); Red Cell Distribution Width 19.8 % (9.3-17.3); White Blood Count 11.2 T/CUMM (4-12)
[2021-01-08 06:00] LABS: Calcium 8.5 MG/DL (8.5-10.1); Osmolality,Calculated 269.8 MOS/KG (273-304); Potassium 4.2 MMOL/L (3.5-5.1)
[2021-01-08] MEDS ORDERED: SODIUM CHLORIDE 0.9% 1,000 ML IV PRN (06:24)
[2021-01-08 06:27] LABS: Basophils # 0.1 10*3/uL (0.0-0.2); Basophils % 0.3 % (0.0-0.8); Eosinophils # 0.4 10*3/uL (0.0-0.87); Eosinophils % 2.5 % (0.00-10.9); Hemoglobin 7.6 GM/DL (14.0-18.0); Immature Granulocytes Absolute 0.18 #; Lymphocytes # 2.1 10*3/uL (1.4-4.0); Lymphocytes % 11.5 % (21.2-54.2); Mean Corpuscular HGB Conc 29.2 GM/DL (32-36); Mean Corpuscular Volume 88.4 FL (87-102); Mean Platelet Volume 8.9 FL (9.6-12.0); Monocytes % 7.8 % (1.7-12.7); Neutrophils % 76.9 % (38.7-73.9); Platelet Count 433 T/CUMM (130-400); Red Blood Count 2.94 MC/CUMM (3.8-5.5); Red Cell Distribution Width 19.3 % (9.3-17.3); White Blood Count 17.8 T/CUMM (4-12)
[2021-01-08] MEDS ORDERED: MIDAZOLAM 2 MG/2 ML VIAL ONE (06:36)
[2021-01-08 06:40] LABS: INR 1.1; PT Patient Result 12.6 SECS (10.5-12.0); Partial Thromboplastin Time 32.1 SECS (23.9-33.8)
[2021-01-08] MEDS ORDERED: fentaNYL 100 MCG/2 ML VIAL ONE (06:58)
[2021-01-08] MEDS ORDERED: PHENYLEPHRINE 10 MG/1 ML VIAL IV ONE (06:59)
[2021-01-08] MEDS ORDERED: SODIUM CHLORIDE 0.9% 1,000 ML IV ONE (07:32)
[2021-01-08] MEDS ORDERED: PHENYLEPHRINE 1 MG/10 ML SYRINGE IV ONE (07:32)
[2021-01-08] MEDS ORDERED: SEVOFLURANE 1 UNIT/15 MINUTE INH ONE (07:32)
[2021-01-08] MEDS ORDERED: ROCURONIUM 50 MG/5 ML VIAL IV ONE (07:32)
[2021-01-08] MEDS ORDERED: LIDOCAINE 2% 5 ML VIAL ONE (07:32)
[2021-01-08] MEDS ORDERED: SUCCINYLCHOLINE 200 MG/10 ML VIAL ONE (07:32)
[2021-01-08] MEDS ORDERED: ETOMIDATE 40 MG/20 ML VIAL IV ONE (07:32)
[2021-01-08] MEDS ORDERED: SODIUM CHLORIDE 0.9% 100 ML IV ONE (07:32)
[2021-01-08] MEDS ORDERED: propofoL 200 MG/20 ML VIAL IV ONE (07:32)
[2021-01-08] MEDS: INSULIN LISPRO 100 UNIT/ML SUBCUT SCH ×2 (18:03→20:48)
[2021-01-08] MEDS: POTASSIUM CHLORIDE 20 MEQ TABLET PO SCH ×2 (18:04→21:05)
[2021-01-08] MEDS: LACTATED RINGERS 500 ML IV SCH (18:04)
[2021-01-08] MEDS: FERROUS SULFATE 325 MG TABLET PO SCH (18:04)
[2021-01-08] MEDS: PANTOPRAZOLE 40 MG TABLET PO SCH (18:05)
[2021-01-08] MEDS: ATORVASTATIN 40 MG TABLET PO SCH (21:05)
[2021-01-08] MEDS: GABAPENTIN 300 MG CAPSULE PO SCH (21:59)
[2021-01-08 23:05] LABS: Hematocrit 25.6 VOL% (42.0-52.0)
[2021-01-09] MEDS: LACTATED RINGERS 1,000 ML IV SCH ×4 (03:29→16:20)
[2021-01-09 06:35] LABS: Calcium 8.2 MG/DL (8.5-10.1); Potassium 4.1 MMOL/L (3.5-5.1)
[2021-01-09 06:39] LABS: Basophils % 0.2 % (0.0-0.8); Eosinophils % 0.2 % (0.00-10.9); Hematocrit 24.3 VOL% (42.0-52.0); Hemoglobin 7.8 GM/DL (14.0-18.0); Immature Granulocytes % 0.7 %; Immature Granulocytes Absolute 0.09 #; Lymphocytes # 0.7 10*3/uL (1.4-4.0); Lymphocytes % 5.1 % (21.2-54.2); Mean Corpuscular HGB Conc 32.1 GM/DL (32-36); Mean Corpuscular Volume 83.5 FL (87-102); Mean Platelet Volume 9.5 FL (9.6-12.0); Monocytes % 6.1 % (1.7-12.7); Neutrophils % 87.7 % (38.7-73.9); Platelet Count 320 T/CUMM (130-400); Red Blood Count 2.91 MC/CUMM (3.8-5.5); Red Cell Distribution Width 17.5 % (9.3-17.3); White Blood Count 12.9 T/CUMM (4-12)
[2021-01-09] MEDS ORDERED: SUCCINYLCHOLINE 200 MG/10 ML VIAL ONE (06:51)
[2021-01-09] MEDS ORDERED: ONDANSETRON 4 MG/2 ML VIAL ONE (06:51)
[2021-01-09] MEDS ORDERED: fentaNYL 100 MCG/2 ML VIAL ONE ×2 (06:51→08:05)
[2021-01-09] MEDS ORDERED: propofoL 200 MG/20 ML VIAL IV ONE (06:51)
[2021-01-09] MEDS ORDERED: LIDOCAINE 2% 5 ML VIAL ONE (06:51)
[2021-01-09] MEDS ORDERED: ROCURONIUM 50 MG/5 ML VIAL IV ONE (06:51)
[2021-01-09] MEDS ORDERED: CALCIUM CHLORIDE 1,000 MG/10 ML VIAL IV ONE (07:18)
[2021-01-09] MEDS ORDERED: SODIUM CHLORIDE 0.9% 1,000 ML IV ONE (07:18)
[2021-01-09] MEDS ORDERED: SEVOFLURANE 1 UNIT/15 MINUTE INH ONE (07:41)
[2021-01-09] MEDS ORDERED: PHENYLEPHRINE 1 MG/10 ML SYRINGE IV ONE (07:41)
[2021-01-09] MEDS ORDERED: ceFAZolin 1,000 MG VIAL ONE (07:45)
[2021-01-09] MEDS: INSULIN LISPRO 100 UNIT/ML SUBCUT SCH ×4 (07:50→21:27)
[2021-01-09] MEDS ORDERED: NEOSTIGMINE 10 MG/10 ML VIAL ONE (08:01)
[2021-01-09] MEDS ORDERED: GLYCOPYRROLATE 0.4 MG/2 ML VIAL ONE (08:03)
[2021-01-09] MEDS: LACTATED RINGERS 500 ML IV SCH (08:38)
[2021-01-09] MEDS: HYDROmorphone 2 MG/1 ML VIAL IV PRN (09:25)
[2021-01-09 09:47] LABS: Hematocrit 28.6 VOL% (42.0-52.0)
[2021-01-09] MEDS: PANTOPRAZOLE 40 MG TABLET PO SCH (11:17)
[2021-01-09] MEDS: FERROUS SULFATE 325 MG TABLET PO SCH ×2 (11:17→17:27)
[2021-01-09] MEDS: POTASSIUM CHLORIDE 20 MEQ TABLET PO SCH ×2 (11:17→21:27)
[2021-01-09] MEDS: ATORVASTATIN 40 MG TABLET PO SCH (21:26)
[2021-01-09] MEDS: GABAPENTIN 300 MG CAPSULE PO SCH (21:26)
[2021-01-10] MEDS: LACTATED RINGERS 1,000 ML IV SCH ×3 (00:10→17:38)
[2021-01-10 06:35] LABS: Basophils % 0.3 % (0.0-0.8); Eosinophils # 0.2 10*3/uL (0.0-0.87); Eosinophils % 1.4 % (0.00-10.9); Hematocrit 28.9 VOL% (42.0-52.0); Immature Granulocytes % 0.9 %; Lymphocytes # 0.7 10*3/uL (1.4-4.0); Lymphocytes % 6.1 % (21.2-54.2); Mean Corpuscular HGB Conc 31.1 GM/DL (32-36); Mean Corpuscular Volume 86.8 FL (87-102); Mean Platelet Volume 9.2 FL (9.6-12.0); Neutrophils % 82.3 % (38.7-73.9); Platelet Count 313 T/CUMM (130-400); Red Blood Count 3.33 MC/CUMM (3.8-5.5); Red Cell Distribution Width 16.7 % (9.3-17.3); White Blood Count 11.4 T/CUMM (4-12)
[2021-01-10 06:54] LABS: Calcium 8.3 MG/DL (8.5-10.1); Potassium 4.2 MMOL/L (3.5-5.1)
[2021-01-10] MEDS: INSULIN LISPRO 100 UNIT/ML SUBCUT SCH ×4 (07:38→20:01)
[2021-01-10 08:51] LABS: Anisocytosis 2+; Band Neutrophils 11 % (0-10); Eosinophils 4 % (0-10); Lymphocytes 4 % (20-55); Macrocytosis Slight; Platelet Estimate Normal; Polychromasia Slight; Segmented Neutrophils 75 % (50-85); Total Cells Counted 100
[2021-01-10] MEDS: PANTOPRAZOLE 40 MG TABLET PO SCH (09:49)
[2021-01-10] MEDS: POTASSIUM CHLORIDE 20 MEQ TABLET PO SCH ×2 (09:49→20:06)
[2021-01-10] MEDS: SODIUM HYPOCHLORITE 0.25% IRRIG 473 ML BOTTLE TOP SCH (09:49)
[2021-01-10] MEDS: FERROUS SULFATE 325 MG TABLET PO SCH ×2 (09:49→17:37)
[2021-01-10] MEDS: ATORVASTATIN 40 MG TABLET PO SCH (20:06)
[2021-01-10] MEDS: GABAPENTIN 300 MG CAPSULE PO SCH (20:06)
[2021-01-11] MEDS: LACTATED RINGERS 1,000 ML IV SCH ×3 (01:23→16:42)
[2021-01-11] MEDS: INSULIN LISPRO 100 UNIT/ML SUBCUT SCH ×4 (07:48→21:14)
[2021-01-11] MEDS ORDERED: MAGNESIUM SULF RIDER 2 GM/50 ML PREMIX IV PRN (08:36)
[2021-01-11] MEDS ORDERED: MAGNESIUM SULF RIDER 4 GM/100 ML PREMIX IV PRN (08:36)
[2021-01-11] MEDS: FERROUS SULFATE 325 MG TABLET PO SCH ×2 (08:56→16:11)
[2021-01-11] MEDS: PANTOPRAZOLE 40 MG TABLET PO SCH (08:56)
[2021-01-11] MEDS: POTASSIUM CHLORIDE 20 MEQ TABLET PO SCH ×2 (08:56→23:50)
[2021-01-11] MEDS: SODIUM HYPOCHLORITE 0.25% IRRIG 473 ML BOTTLE TOP SCH (09:30)
[2021-01-11] MEDS: GABAPENTIN 300 MG CAPSULE PO SCH (23:49)
[2021-01-11] MEDS: ATORVASTATIN 40 MG TABLET PO SCH (23:50)
[2021-01-12] MEDS: LACTATED RINGERS 1,000 ML IV SCH ×3 (00:19→20:38)
[2021-01-12 06:18] LABS: Basophils # 0.1 10*3/uL (0.0-0.2); Basophils % 0.7 % (0.0-0.8); Eosinophils # 0.6 10*3/uL (0.0-0.87); Eosinophils % 5.2 % (0.00-10.9); Hemoglobin 8.9 GM/DL (14.0-18.0); Immature Granulocytes % 1.5 %; Immature Granulocytes Absolute 0.16 #; Lymphocytes # 1.2 10*3/uL (1.4-4.0); Lymphocytes % 10.9 % (21.2-54.2); Mean Corpuscular HGB Conc 31.8 GM/DL (32-36); Mean Corpuscular Volume 85.1 FL (87-102); Neutrophils % 72.7 % (38.7-73.9); Platelet Count 298 T/CUMM (130-400); Red Blood Count 3.29 MC/CUMM (3.8-5.5); Red Cell Distribution Width 16.5 % (9.3-17.3); White Blood Count 10.5 T/CUMM (4-12)
[2021-01-12 06:44] LABS: Osmolality,Calculated 269.8 MOS/KG (273-304); Potassium 3.6 MMOL/L (3.5-5.1)
[2021-01-12] MEDS: INSULIN LISPRO 100 UNIT/ML SUBCUT SCH ×4 (08:07→20:55)
[2021-01-12] MEDS: POTASSIUM CHLORIDE 20 MEQ TABLET PO SCH ×2 (11:18→20:54)
[2021-01-12] MEDS: PANTOPRAZOLE 40 MG TABLET PO SCH (11:18)
[2021-01-12] MEDS: FERROUS SULFATE 325 MG TABLET PO SCH ×2 (11:18→17:03)
[2021-01-12] MEDS: SODIUM HYPOCHLORITE 0.25% IRRIG 473 ML BOTTLE TOP SCH (11:19)
[2021-01-12] MEDS: GABAPENTIN 300 MG CAPSULE PO SCH (20:54)
[2021-01-12] MEDS: ATORVASTATIN 40 MG TABLET PO SCH (20:54)
[2021-01-13] MEDS: LACTATED RINGERS 1,000 ML IV SCH ×3 (05:44→16:01)
[2021-01-13] MEDS: INSULIN LISPRO 100 UNIT/ML SUBCUT SCH ×4 (07:38→23:25)
[2021-01-13] MEDS: POTASSIUM CHLORIDE 20 MEQ TABLET PO SCH ×2 (09:01→23:25)
[2021-01-13] MEDS: SODIUM HYPOCHLORITE 0.25% IRRIG 473 ML BOTTLE TOP SCH (09:01)
[2021-01-13] MEDS: FERROUS SULFATE 325 MG TABLET PO SCH ×2 (09:03→16:01)
[2021-01-13] MEDS: PANTOPRAZOLE 40 MG TABLET PO SCH (09:03)
[2021-01-13] MEDS: HYDROmorphone 2 MG/1 ML VIAL IV PRN (09:03)
[2021-01-13] MEDS: ATORVASTATIN 40 MG TABLET PO SCH (23:25)
[2021-01-13] MEDS: GABAPENTIN 300 MG CAPSULE PO SCH (23:25)
[2021-01-14] MEDS: LACTATED RINGERS 1,000 ML IV SCH ×3 (01:03→17:54)
[2021-01-14] MEDS: INSULIN LISPRO 100 UNIT/ML SUBCUT SCH ×4 (08:08→21:04)
[2021-01-14] MEDS: SODIUM HYPOCHLORITE 0.25% IRRIG 473 ML BOTTLE TOP SCH (09:49)
[2021-01-14] MEDS: POTASSIUM CHLORIDE 20 MEQ TABLET PO SCH ×2 (09:49→21:04)
[2021-01-14] MEDS: PANTOPRAZOLE 40 MG TABLET PO SCH (09:49)
[2021-01-14] MEDS: FERROUS SULFATE 325 MG TABLET PO SCH ×2 (09:49→17:46)
[2021-01-14] MEDS: ATORVASTATIN 40 MG TABLET PO SCH (21:04)
[2021-01-14] MEDS: GABAPENTIN 300 MG CAPSULE PO SCH (21:04)
[2021-01-15] MEDS: LACTATED RINGERS 1,000 ML IV SCH ×3 (01:42→21:19)
[2021-01-15] MEDS: INSULIN LISPRO 100 UNIT/ML SUBCUT SCH ×4 (07:47→21:18)
[2021-01-15] MEDS: SODIUM HYPOCHLORITE 0.25% IRRIG 473 ML BOTTLE TOP SCH (09:29)
[2021-01-15] MEDS: FERROUS SULFATE 325 MG TABLET PO SCH ×2 (09:29→16:35)
[2021-01-15] MEDS: POTASSIUM CHLORIDE 20 MEQ TABLET PO SCH ×2 (09:29→21:17)
[2021-01-15] MEDS: PANTOPRAZOLE 40 MG TABLET PO SCH (09:29)
[2021-01-15] MEDS: ATORVASTATIN 40 MG TABLET PO SCH (21:17)
[2021-01-15] MEDS: GABAPENTIN 300 MG CAPSULE PO SCH (21:18)
[2021-01-16] MEDS: LACTATED RINGERS 1,000 ML IV SCH ×2 (05:55→11:40)
[2021-01-16 08:05] VITALS: BP 116/62
[2021-01-16] MEDS: INSULIN LISPRO 100 UNIT/ML SUBCUT SCH ×2 (08:15→11:40)
[2021-01-16] MEDS: POTASSIUM CHLORIDE 20 MEQ TABLET PO SCH (09:30)
[2021-01-16] MEDS: PANTOPRAZOLE 40 MG TABLET PO SCH (09:30)
[2021-01-16] MEDS: FERROUS SULFATE 325 MG TABLET PO SCH (09:30)
[2021-01-16] MEDS: SODIUM HYPOCHLORITE 0.25% IRRIG 473 ML BOTTLE TOP SCH (09:30)
== END 2021-01-16 12:00 | DRG 305 ==
LOC: EDBD → EDUNIT# → N.ED 13:52 → N.EDINP 15:57 → SUATTDRO 15:57 → N.3E 17:40 → N.ICU 01-08 05:56 → N.3E 01-09 15:48
PROVIDERS: ADMIT Internal Medicine; ATTEND Internal Medicine
PROC: COLONBX (2020-12-31 12:05)

== ENCOUNTER 2022-03-25 12:30 | Inpatient (IN) ==
[2022-03-25 13:53] LABS: Albumin 3.4 G/DL (3.4-5.0); Bilirubin,Total 0.7 MG/DL (0.20-1.00); Calcium 8.9 MG/DL (8.5-10.1); Osmolality,Calculated 289.7 MOS/KG (273-304); Total Protein 6.9 G/DL (6.4-8.2)
[2022-03-25 13:55] LABS: Basophils % 0.4 % (0.0-0.8); Eosinophils # 0.1 10*3/uL (0.0-0.87); Eosinophils % 1.8 % (0.00-10.9); Hematocrit 35.3 VOL% (42.0-52.0); Hemoglobin 11.6 GM/DL (14.0-18.0); Immature Granulocytes % 0.6 %; Immature Granulocytes Absolute 0.04 #; Lymphocytes # 1.2 10*3/uL (1.4-4.0); Lymphocytes % 16.2 % (21.2-54.2); Mean Corpuscular HGB Conc 32.9 GM/DL (32-36); Mean Corpuscular Volume 90.7 FL (87-102); Mean Platelet Volume 9.6 FL (9.6-12.0); Monocytes # 0.6 10*3/uL (0.11-0.8); Monocytes % 7.7 % (1.7-12.7); Neutrophils % 73.3 % (38.7-73.9); Platelet Count 183 T/CUMM (130-400); Red Blood Count 3.89 MC/CUMM (3.8-5.5); Red Cell Distribution Width 13.8 % (9.3-17.3); White Blood Count 7.1 T/CUMM (4-12)
[2022-03-25 14:47] LABS: Glucose,Urine (UA) Negative (Negative); Ketones,Urine Negative (Negative); Mucus,Urine Occasional /LPF (Occasional); Protein,Urine Negative (Negative); RBC,Urine 2 /HPF (0-4); Urine Appearance Clear (Clear); Urine Color Yellow (Yellow); Urine Specific Gravity > 1.030 (1.001-1.035); Urine pH 6.5 (4.5-8.0)
[2022-03-25 14:48] LABS: Bilirubin,Urine Negative (Negative); Blood, Urine Negative (Negative); Nitrite,Urine Negative (Negative); Urine Urobilinogen 0.2 eU/dL (<2.0)
[2022-03-25] MEDS ORDERED: GLUCAGON 1 MG VIAL IM PRN (15:53)
[2022-03-25] MEDS ORDERED: ONDANSETRON 4 MG/2 ML VIAL IV PRN (15:53)
[2022-03-25] MEDS ORDERED: ACETAMINOPHEN 325 MG TABLET PO PRN (15:53)
[2022-03-25] MEDS ORDERED: BISACODYL 5 MG TABLET PO PRN (15:53)
[2022-03-25] MEDS ORDERED: KETOROLAC 15 MG/1 ML VIAL IV PRN (15:53)
[2022-03-25] MEDS ORDERED: DEXTROSE 10% 250 ML BAG IV PRN (16:09)
[2022-03-25] MEDS ORDERED: guaiFENesin 200 MG/10 ML UDCUP PO PRN (16:10)
[2022-03-25] MEDS ORDERED: KETOROLAC 30 MG/1 ML VIAL IV PRN (16:30)
[2022-03-25] MEDS: LACTATED RINGERS 1,000 ML IV SCH (17:35)
[2022-03-25] MEDS: PIPERACILLIN/TAZOBACTAM 3,375 MG in SODIUM CHLORIDE 0.9% 100 ML IV SCH (17:45)
[2022-03-25] MEDS: INSULIN LISPRO 100 UNIT/ML SUBCUT SCH ×2 (18:05→20:30)
[2022-03-25] MEDS ORDERED: GABAPENTIN 300 MG CAPSULE PO SCH (21:00)
[2022-03-26] MEDS: PIPERACILLIN/TAZOBACTAM 3,375 MG in SODIUM CHLORIDE 0.9% 100 ML IV SCH ×2 (00:54→07:55)
[2022-03-26] MEDS: HYDROmorphone 1 MG/1 ML SYRINGE IV PRN ×2 (00:55→02:50)
[2022-03-26] MEDS: LACTATED RINGERS 1,000 ML IV SCH (00:56)
[2022-03-26] MEDS: INSULIN LISPRO 100 UNIT/ML SUBCUT SCH ×2 (07:35→12:00)
[2022-03-26] MEDS ORDERED: INDOCYANINE GREEN 25 MG VIAL IV ONE (08:21)
[2022-03-26] MEDS ORDERED: LIDOCAINE 1%/EPI INJ 20 ML VIAL ONE (08:30)
[2022-03-26] MEDS ORDERED: TISSUE ADHESIVE 1 EACH APPLICATOR TOP ONE (08:30)
[2022-03-26] MEDS ORDERED: BUPIVACAINE MPF 0.25% 10 ML VIAL ONE (08:30)
[2022-03-26] MEDS ORDERED: PANTOPRAZOLE 40 MG TABLET PO SCH (09:00)
[2022-03-26] MEDS ORDERED: DESFLURANE 1 UNIT/15 MINUTE INH ONE ×2 (09:12→11:10)
[2022-03-26] MEDS ORDERED: ROCURONIUM 50 MG/5 ML VIAL IV ONE (09:12)
[2022-03-26] MEDS ORDERED: LIDOCAINE 2% 5 ML VIAL ONE (09:12)
[2022-03-26] MEDS ORDERED: ONDANSETRON 4 MG/2 ML VIAL ONE (09:12)
[2022-03-26] MEDS ORDERED: propofoL 200 MG/20 ML VIAL IV ONE (09:12)
[2022-03-26] MEDS ORDERED: fentaNYL 100 MCG/2 ML VIAL ONE (09:13)
[2022-03-26] MEDS ORDERED: ETOMIDATE 40 MG/20 ML VIAL IV ONE (09:45)
[2022-03-26] MEDS ORDERED: SUCCINYLCHOLINE 200 MG/10 ML VIAL ONE (09:51)
[2022-03-26] MEDS ORDERED: PHENYLEPHRINE 1 MG/10 ML SYRINGE IV ONE (10:12)
[2022-03-26] MEDS ORDERED: GLYCOPYRROLATE 0.4 MG/2 ML VIAL ONE (10:24)
[2022-03-26] MEDS ORDERED: SEVOFLURANE 1 UNIT/15 MINUTE INH ONE (11:10)
[2022-03-26] MEDS ORDERED: SUGAMMADEX 200 MG/2 ML VIAL IV ONE (11:10)
[2022-03-26 12:33] VITALS: BP 151/74
== END 2022-03-26 15:30 | disposition home or self-care (01) | DRG 263 ==
LOC: N.ED 12:30 → N.EDINP 15:53 → N.3E 17:53
PROVIDERS: ADMIT Surgery; ATTEND Surgery

== ENCOUNTER 2022-06-25 15:18 | Inpatient (IN) ==
[2022-06-25 16:04] LABS: Basophils % 0.2 % (0.0-0.8); Hematocrit 30.6 VOL% (42.0-52.0); Hemoglobin 10.2 GM/DL (14.0-18.0); Immature Granulocytes % 0.7 %; Immature Granulocytes Absolute 0.13 #; Lymphocytes # 0.8 10*3/uL (1.4-4.0); Lymphocytes % 4.5 % (21.2-54.2); Mean Corpuscular HGB Conc 33.3 GM/DL (32-36); Mean Corpuscular Volume 84.1 FL (87-102); Mean Platelet Volume 10.4 FL (9.6-12.0); Monocytes # 1.2 10*3/uL (0.11-0.8); Monocytes % 6.9 % (1.7-12.7); Neutrophils % 87.7 % (38.7-73.9); Platelet Count 278 T/CUMM (130-400); Red Blood Count 3.64 MC/CUMM (3.8-5.5); Red Cell Distribution Width 13.7 % (9.3-17.3); White Blood Count 17.9 T/CUMM (4-12)
[2022-06-25 16:15] LABS: PT Patient Result 11.2 SECS (10.1-12.1); Partial Thromboplastin Time 29.9 SECS (23.7-32.9)
[2022-06-25 16:21] LABS: Albumin 2.9 G/DL (3.4-5.0); Bilirubin,Total 1.5 MG/DL (0.20-1.00); Calcium 8.1 MG/DL (8.5-10.1); Osmolality,Calculated 288.4 MOS/KG (273-304); Potassium 2.6 MMOL/L (3.5-5.1); Total Protein 6.7 G/DL (6.4-8.2)
[2022-06-25 16:30] LABS: Lymphocytes 6 % (20-55); Total Cells Counted 100
[2022-06-25 16:31] LABS: Anisocytosis 1+; Hypochromia 1+; Macrocytosis 1+; Microcytosis 1+; Platelet Estimate Adequate
[2022-06-25] MEDS ORDERED: POTASSIUM CHLORIDE 20 MEQ TABLET PO STA (18:45)
[2022-06-25] MEDS ORDERED: POTASSIUM CHLORIDE RIDER 10 MEQ/100 ML PREMIX IV STA (18:46)
[2022-06-25] MEDS ORDERED: ONDANSETRON 4 MG/2 ML VIAL IV PRN (18:55)
[2022-06-25] MEDS ORDERED: MORPHINE 2 MG/1 ML SYRINGE IV PRN (18:55)
[2022-06-25] MEDS ORDERED: DEXTROSE 10% 250 ML BAG IV PRN (19:11)
[2022-06-25] MEDS: SODIUM CHLORIDE 0.9% 1,000 ML IV SCH (19:18)
[2022-06-25] MEDS: PANTOPRAZOLE 40 MG VIAL IV SCH (20:10)
[2022-06-25] MEDS: PIPERACILLIN/TAZOBACTAM 3.375 MG in SODIUM CHLORIDE 0.9% 100 ML IV SCH (20:10)
[2022-06-25 21:04] LABS: Blood, Urine Negative (Negative); Glucose,Urine (UA) Negative (Negative); Hyaline Casts,Urine 52 /LPF (0-3); Ketones,Urine Negative (Negative); Mucus,Urine Occasional /LPF (Occasional); Nitrite,Urine Negative (Negative); Protein,Urine 30 mg/dL (Negative); RBC,Urine 1 /HPF (0-4); Urine Appearance CLOUDY (Clear); Urine Color Amber (Yellow); Urine Specific Gravity 1.018 (1.001-1.035)
[2022-06-25 21:06] LABS: Bilirubin,Urine Small mg/dL (Negative)
[2022-06-25] MEDS: ENOXAPARIN 30 MG/0.3 ML SYRINGE SUBCUT SCH (21:08)
[2022-06-26] MEDS: INSULIN LISPRO 100 UNIT/ML SUBCUT SCH ×4 (00:40→18:37)
[2022-06-26] MEDS: POTASSIUM CHLORIDE RIDER 10 MEQ/100 ML PREMIX IV PRN ×5 (01:00→06:01)
[2022-06-26] MEDS: SODIUM CHLORIDE 0.9% 1,000 ML IV SCH (03:45)
[2022-06-26 06:39] LABS: Basophils # 0.1 10*3/uL (0.0-0.2); Basophils % 0.3 % (0.0-0.8); Eosinophils # 0.3 10*3/uL (0.0-0.87); Eosinophils % 1.9 % (0.00-10.9); Hematocrit 27.8 VOL% (42.0-52.0); Hemoglobin 8.9 GM/DL (14.0-18.0); Immature Granulocytes % 0.6 %; Immature Granulocytes Absolute 0.09 #; Lymphocytes # 1.1 10*3/uL (1.4-4.0); Lymphocytes % 7.5 % (21.2-54.2); Mean Platelet Volume 10.2 FL (9.6-12.0); Monocytes # 1.2 10*3/uL (0.11-0.8); Monocytes % 8.4 % (1.7-12.7); Neutrophils % 81.3 % (38.7-73.9); Platelet Count 223 T/CUMM (130-400); Red Blood Count 3.16 MC/CUMM (3.8-5.5); Red Cell Distribution Width 13.6 % (9.3-17.3); White Blood Count 14.6 T/CUMM (4-12)
[2022-06-26 07:16] LABS: Albumin 2.6 G/DL (3.4-5.0); Bilirubin,Total 1.4 MG/DL (0.20-1.00); Calcium 8.2 MG/DL (8.5-10.1); Osmolality,Calculated 284.4 MOS/KG (273-304); Phosphorous 4.5 MG/DL (2.5-4.9); Potassium 3.2 MMOL/L (3.5-5.1); Thyroid Stimulating Hormone 0.181 uIU/ml (0.358-3.74); Total Protein 5.9 G/DL (6.4-8.2)
[2022-06-26 08:44] LABS: Free T4 (Free Thyroxine) 1.43 NG/DL (0.76-1.46)
[2022-06-26] MEDS: PANTOPRAZOLE 40 MG VIAL IV SCH ×2 (11:00→22:05)
[2022-06-26] MEDS: SODIUM CHLOR 0.9% KCL 40 MEQ 40 MEQ/1,000 ML BAG IV SCH ×3 (11:02→21:59)
[2022-06-26] MEDS: PIPERACILLIN/TAZOBACTAM 3.375 MG in SODIUM CHLORIDE 0.9% 100 ML IV SCH ×2 (11:02→22:02)
[2022-06-26] MEDS: METOCLOPRAMIDE 10 MG/2 ML VIAL IV SCH (18:42)
[2022-06-26] MEDS: ENOXAPARIN 30 MG/0.3 ML SYRINGE SUBCUT SCH (22:05)
[2022-06-27] MEDS: METOCLOPRAMIDE 10 MG/2 ML VIAL IV SCH ×2 (00:48→06:19)
[2022-06-27] MEDS: INSULIN LISPRO 100 UNIT/ML SUBCUT SCH ×4 (02:06→17:03)
[2022-06-27] MEDS: SODIUM CHLOR 0.9% KCL 40 MEQ 40 MEQ/1,000 ML BAG IV SCH ×2 (08:04→08:57)
[2022-06-27] MEDS: PIPERACILLIN/TAZOBACTAM 3.375 MG in SODIUM CHLORIDE 0.9% 100 ML IV SCH (08:05)
[2022-06-27] MEDS: PANTOPRAZOLE 40 MG VIAL IV SCH ×2 (08:06→22:42)
[2022-06-27 09:21] LABS: Basophils % 0.2 % (0.0-0.8); Eosinophils # 0.1 10*3/uL (0.0-0.87); Eosinophils % 1.4 % (0.00-10.9); Hematocrit 28.5 VOL% (42.0-52.0); Hemoglobin 9.1 GM/DL (14.0-18.0); Immature Granulocytes % 0.5 %; Immature Granulocytes Absolute 0.05 #; Lymphocytes # 0.7 10*3/uL (1.4-4.0); Lymphocytes % 6.9 % (21.2-54.2); Mean Corpuscular HGB Conc 31.9 GM/DL (32-36); Mean Corpuscular Volume 87.7 FL (87-102); Mean Platelet Volume 9.8 FL (9.6-12.0); Monocytes # 0.7 10*3/uL (0.11-0.8); Monocytes % 6.9 % (1.7-12.7); Neutrophils % 84.1 % (38.7-73.9); Platelet Count 203 T/CUMM (130-400); Red Blood Count 3.25 MC/CUMM (3.8-5.5); Red Cell Distribution Width 13.9 % (9.3-17.3); White Blood Count 10.2 T/CUMM (4-12)
[2022-06-27 09:46] LABS: Calcium 8.1 MG/DL (8.5-10.1); Osmolality,Calculated 288.4 MOS/KG (273-304); Potassium 3.6 MMOL/L (3.5-5.1)
[2022-06-27] MEDS: LACTATED RINGERS 1,000 ML IV SCH ×3 (11:46→22:34)
[2022-06-27] MEDS: PIPERACILLIN/TAZOBACTAM 3,375 MG in SODIUM CHLORIDE 0.9% 100 ML IV SCH (22:34)
[2022-06-27] MEDS: ENOXAPARIN 30 MG/0.3 ML SYRINGE SUBCUT SCH (22:42)
[2022-06-28] MEDS: INSULIN LISPRO 100 UNIT/ML SUBCUT SCH ×4 (01:49→18:16)
[2022-06-28 05:31] LABS: Basophils % 0.2 % (0.0-0.8); Eosinophils # 0.1 10*3/uL (0.0-0.87); Eosinophils % 0.6 % (0.00-10.9); Hematocrit 32.8 VOL% (42.0-52.0); Hemoglobin 10.3 GM/DL (14.0-18.0); Immature Granulocytes % 0.5 %; Immature Granulocytes Absolute 0.07 #; Lymphocytes # 0.9 10*3/uL (1.4-4.0); Lymphocytes % 6.4 % (21.2-54.2); Mean Corpuscular HGB Conc 31.4 GM/DL (32-36); Mean Corpuscular Volume 89.6 FL (87-102); Mean Platelet Volume 9.6 FL (9.6-12.0); Monocytes % 7.3 % (1.7-12.7); Platelet Count 228 T/CUMM (130-400); Red Blood Count 3.66 MC/CUMM (3.8-5.5); Red Cell Distribution Width 13.8 % (9.3-17.3); White Blood Count 13.7 T/CUMM (4-12)
[2022-06-28 06:08] LABS: Albumin 2.7 G/DL (3.4-5.0); Bilirubin,Total 1.2 MG/DL (0.20-1.00); Calcium 8.3 MG/DL (8.5-10.1); Osmolality,Calculated 292.7 MOS/KG (273-304); Total Protein 6.2 G/DL (6.4-8.2)
[2022-06-28] MEDS: PANTOPRAZOLE 40 MG VIAL IV SCH ×2 (10:21→20:52)
[2022-06-28] MEDS: PIPERACILLIN/TAZOBACTAM 3,375 MG in SODIUM CHLORIDE 0.9% 100 ML IV SCH ×3 (10:26→20:51)
[2022-06-28] MEDS: LACTATED RINGERS 1,000 ML IV SCH ×3 (10:26→18:17)
[2022-06-28] MEDS ORDERED: ENOXAPARIN 40 MG/0.4 ML SYRINGE SUBCUT SCH (21:00)
[2022-06-29] MEDS: INSULIN LISPRO 100 UNIT/ML SUBCUT SCH ×4 (01:36→17:11)
[2022-06-29 05:51] LABS: Basophils % 0.3 % (0.0-0.8); Eosinophils % 0.2 % (0.00-10.9); Hematocrit 38.7 VOL% (42.0-52.0); Hemoglobin 12.2 GM/DL (14.0-18.0); Immature Granulocytes % 0.4 %; Immature Granulocytes Absolute 0.07 #; Lymphocytes # 0.7 10*3/uL (1.4-4.0); Lymphocytes % 4.2 % (21.2-54.2); Mean Corpuscular HGB Conc 31.5 GM/DL (32-36); Mean Platelet Volume 10.4 FL (9.6-12.0); Monocytes % 6.1 % (1.7-12.7); Neutrophils % 88.8 % (38.7-73.9); Platelet Count 261 T/CUMM (130-400); Red Blood Count 4.35 MC/CUMM (3.8-5.5); Red Cell Distribution Width 14.1 % (9.3-17.3); White Blood Count 15.8 T/CUMM (4-12)
[2022-06-29] MEDS: PIPERACILLIN/TAZOBACTAM 3,375 MG in SODIUM CHLORIDE 0.9% 100 ML IV SCH ×3 (05:54→22:04)
[2022-06-29 06:14] LABS: Albumin 3.3 G/DL (3.4-5.0); Bilirubin,Total 1.3 MG/DL (0.20-1.00); Calcium 9.6 MG/DL (8.5-10.1); Total Protein 8.3 G/DL (6.4-8.2)
[2022-06-29 06:16] LABS: Eosinophils 1 % (0-10); Lymphocytes 3 % (20-55); Platelet Estimate Adequate; Total Cells Counted 100
[2022-06-29 06:17] LABS: Hypochromia Slight; Microcytosis Slight
[2022-06-29] MEDS: LACTATED RINGERS 1,000 ML IV SCH ×4 (07:48→22:04)
[2022-06-29] MEDS: PANTOPRAZOLE 40 MG VIAL IV SCH ×2 (08:00→22:03)
[2022-06-29] MEDS ORDERED: LACTATED RINGERS 1,000 ML IV SCH (08:00)
[2022-06-29] MEDS ORDERED: propofoL 200 MG/20 ML VIAL IV ONE (12:04)
[2022-06-29] MEDS ORDERED: LIDOCAINE 2% 5 ML VIAL ONE (12:04)
[2022-06-29] MEDS ORDERED: AMINO ACIDS/DEXT/LYTES 4.25-5% 2,000 ML IV SCH (17:00)
[2022-06-29] MEDS: FAT EMULSION 20% 250 ML IV SCH (18:03)
[2022-06-29] MEDS: MENTHOL/ZINC OXIDE OINT 71 GM JAR TOP SCH (22:04)
[2022-06-30] MEDS: INSULIN LISPRO 100 UNIT/ML SUBCUT SCH ×4 (01:27→18:00)
[2022-06-30] MEDS: PIPERACILLIN/TAZOBACTAM 3,375 MG in SODIUM CHLORIDE 0.9% 100 ML IV SCH (05:25)
[2022-06-30 06:38] LABS: Basophils % 0.3 % (0.0-0.8); Eosinophils # 0.2 10*3/uL (0.0-0.87); Eosinophils % 1.3 % (0.00-10.9); Hematocrit 39.2 VOL% (42.0-52.0); Hemoglobin 12.3 GM/DL (14.0-18.0); Immature Granulocytes % 0.5 %; Immature Granulocytes Absolute 0.06 #; Lymphocytes % 8.2 % (21.2-54.2); Mean Corpuscular HGB Conc 31.4 GM/DL (32-36); Mean Corpuscular Volume 88.9 FL (87-102); Monocytes # 0.9 10*3/uL (0.11-0.8); Monocytes % 7.2 % (1.7-12.7); Neutrophils % 82.5 % (38.7-73.9); Platelet Count 275 T/CUMM (130-400); Red Blood Count 4.41 MC/CUMM (3.8-5.5)
[2022-06-30 07:06] LABS: Calcium 9.6 MG/DL (8.5-10.1); Osmolality,Calculated 303.4 MOS/KG (273-304); Potassium 3.9 MMOL/L (3.5-5.1)
[2022-06-30 07:14] LABS: Bilirubin,Total 0.9 MG/DL (0.20-1.00); Calcium 9.6 MG/DL (8.5-10.1); Osmolality,Calculated 301.5 MOS/KG (273-304); Potassium 3.9 MMOL/L (3.5-5.1); Total Protein 8.1 G/DL (6.4-8.2)
[2022-06-30] MEDS: MENTHOL/ZINC OXIDE OINT 71 GM JAR TOP SCH ×2 (08:35→21:38)
[2022-06-30] MEDS: PANTOPRAZOLE 40 MG VIAL IV SCH ×2 (08:35→21:37)
[2022-06-30] MEDS: LACTATED RINGERS 1,000 ML IV SCH ×2 (11:38→21:42)
[2022-06-30] MEDS: FAT EMULSION 20% 250 ML IV SCH (16:40)
[2022-06-30] MEDS ORDERED: INSULIN REGULAR IV SCH ×2 (17:00)
[2022-06-30] MEDS ORDERED: [UNRECOGNIZED DRUG - OTHER] IV SCH ×2 (17:00)
[2022-06-30] MEDS ORDERED: MULTIVITAMIN IV SCH ×2 (17:00)
[2022-06-30] MEDS: ONDANSETRON 4 MG/2 ML VIAL IV PRN (21:38)
[2022-07-01] MEDS: INSULIN LISPRO 100 UNIT/ML SUBCUT SCH ×4 (00:03→18:04)
[2022-07-01] MEDS: LACTATED RINGERS 1,000 ML IV SCH ×3 (05:44→13:19)
[2022-07-01 06:08] LABS: Calcium 9.1 MG/DL (8.5-10.1); Osmolality,Calculated 301.4 MOS/KG (273-304); Potassium 3.3 MMOL/L (3.5-5.1)
[2022-07-01] MEDS: MENTHOL/ZINC OXIDE OINT 71 GM JAR TOP SCH ×2 (09:14→21:11)
[2022-07-01] MEDS: PANTOPRAZOLE 40 MG VIAL IV SCH ×2 (09:15→20:44)
[2022-07-01] MEDS: INSULIN REGULAR IV SCH (16:21)
[2022-07-01] MEDS: [UNRECOGNIZED DRUG - OTHER] IV SCH (16:21)
[2022-07-01] MEDS: POTASSIUM CHLORIDE IV SCH (16:21)
[2022-07-01] MEDS: FAT EMULSION 20% 250 ML IV SCH (16:25)
[2022-07-01] MEDS ORDERED: MULTIVITAMIN INJ 10 ML in AMINO ACIDS/DEXT/LYTES 4.25-5% 2,000 ML IV SCH (17:00)
[2022-07-01] MEDS ORDERED: AMINO ACIDS/DEXT/LYTES 5-15% 2,000 ML IV SCH (17:00)
[2022-07-02] MEDS: LACTATED RINGERS 1,000 ML IV SCH ×4 (00:41→18:37)
[2022-07-02] MEDS: INSULIN LISPRO 100 UNIT/ML SUBCUT SCH ×4 (00:42→19:44)
[2022-07-02 09:38] LABS: Calcium 9.2 MG/DL (8.5-10.1); Osmolality,Calculated 297.3 MOS/KG (273-304); Potassium 3.8 MMOL/L (3.5-5.1)
[2022-07-02] MEDS: MENTHOL/ZINC OXIDE OINT 71 GM JAR TOP SCH ×2 (10:28→23:05)
[2022-07-02] MEDS: PANTOPRAZOLE 40 MG VIAL IV SCH ×2 (10:34→20:36)
[2022-07-02] MEDS: INSULIN REGULAR IV SCH (16:30)
[2022-07-02] MEDS: POTASSIUM CHLORIDE IV SCH (16:30)
[2022-07-02] MEDS: MULTIVITAMIN IV SCH (16:30)
[2022-07-02] MEDS: [UNRECOGNIZED DRUG - OTHER] IV SCH (16:30)
[2022-07-02] MEDS: FAT EMULSION 20% 250 ML IV SCH (19:43)
[2022-07-03] MEDS: INSULIN LISPRO 100 UNIT/ML SUBCUT SCH ×3 (01:51→13:41)
[2022-07-03 05:41] LABS: Albumin 2.6 G/DL (3.4-5.0); Calcium 8.9 MG/DL (8.5-10.1); Osmolality,Calculated 293.3 MOS/KG (273-304); Potassium 3.9 MMOL/L (3.5-5.1)
[2022-07-03] MEDS: LACTATED RINGERS 1,000 ML IV SCH (06:13)
[2022-07-03] MEDS: PANTOPRAZOLE 40 MG VIAL IV SCH ×2 (11:34→21:07)
[2022-07-03] MEDS: MENTHOL/ZINC OXIDE OINT 71 GM JAR TOP SCH ×2 (11:35→21:09)
[2022-07-03] MEDS: [UNRECOGNIZED DRUG - OTHER] IV SCH (17:48)
[2022-07-03] MEDS: FAT EMULSION 20% 250 ML IV SCH (17:48)
[2022-07-03] MEDS: INSULIN REGULAR IV SCH (17:48)
[2022-07-03] MEDS: POTASSIUM CHLORIDE IV SCH (17:48)
[2022-07-04] MEDS: INSULIN LISPRO 100 UNIT/ML SUBCUT SCH ×6 (00:47→23:42)
[2022-07-04 06:21] LABS: Calcium 9.3 MG/DL (8.5-10.1); Osmolality,Calculated 298.3 MOS/KG (273-304)
[2022-07-04] MEDS: PANTOPRAZOLE 40 MG VIAL IV SCH ×2 (10:19→20:48)
[2022-07-04] MEDS: LACTATED RINGERS 1,000 ML IV SCH ×6 (10:20→20:30)
[2022-07-04] MEDS: MENTHOL/ZINC OXIDE OINT 71 GM JAR TOP SCH ×2 (10:21→20:48)
[2022-07-04] MEDS: INSULIN REGULAR IV SCH (17:24)
[2022-07-04] MEDS: [UNRECOGNIZED DRUG - OTHER] IV SCH (17:24)
[2022-07-04] MEDS: FAT EMULSION 20% 250 ML IV SCH (17:24)
[2022-07-04] MEDS: POTASSIUM CHLORIDE IV SCH (17:24)
[2022-07-05] MEDS: INSULIN LISPRO 100 UNIT/ML SUBCUT SCH ×4 (06:18→23:24)
[2022-07-05 06:19] LABS: Osmolality,Calculated 294.7 MOS/KG (273-304); Potassium 4.1 MMOL/L (3.5-5.1)
[2022-07-05] MEDS: PANTOPRAZOLE 40 MG VIAL IV SCH ×2 (09:01→21:52)
[2022-07-05] MEDS: MENTHOL/ZINC OXIDE OINT 71 GM JAR TOP SCH ×2 (09:03→21:53)
[2022-07-05] MEDS: LACTATED RINGERS 1,000 ML IV SCH ×2 (11:42→21:56)
[2022-07-05] MEDS ORDERED: ETOMIDATE 20 MG/10 ML VIAL IV ONE (14:44)
[2022-07-05] MEDS ORDERED: propofoL 200 MG/20 ML VIAL IV ONE (14:44)
[2022-07-05] MEDS ORDERED: LIDOCAINE 2% 5 ML VIAL ONE (14:44)
[2022-07-05] MEDS: MULTIVITAMIN IV SCH (17:26)
[2022-07-05] MEDS: [UNRECOGNIZED DRUG - OTHER] IV SCH (17:26)
[2022-07-05] MEDS: INSULIN REGULAR IV SCH (17:26)
[2022-07-05] MEDS: POTASSIUM CHLORIDE IV SCH (17:26)
[2022-07-05] MEDS: FAT EMULSION 20% 250 ML IV SCH (17:30)
[2022-07-05] MEDS: ZINC OXIDE PASTE 113 GM TUBE TOP SCH ×2 (19:25→21:55)
[2022-07-06 06:09] LABS: Basophils # 0.1 10*3/uL (0.0-0.2); Basophils % 0.6 % (0.0-0.8); Eosinophils # 0.2 10*3/uL (0.0-0.87); Eosinophils % 1.7 % (0.00-10.9); Hematocrit 37.5 VOL% (42.0-52.0); Hemoglobin 11.9 GM/DL (14.0-18.0); Immature Granulocytes % 0.7 %; Immature Granulocytes Absolute 0.08 #; Lymphocytes # 1.3 10*3/uL (1.4-4.0); Lymphocytes % 12.1 % (21.2-54.2); Mean Corpuscular HGB Conc 31.7 GM/DL (32-36); Mean Corpuscular Volume 85.8 FL (87-102); Mean Platelet Volume 11.3 FL (9.6-12.0); Monocytes # 0.7 10*3/uL (0.11-0.8); Neutrophils % 78.9 % (38.7-73.9); Platelet Count 172 T/CUMM (130-400); Red Blood Count 4.37 MC/CUMM (3.8-5.5); Red Cell Distribution Width 13.7 % (9.3-17.3); White Blood Count 10.9 T/CUMM (4-12)
[2022-07-06 06:38] LABS: Albumin 2.8 G/DL (3.4-5.0); Bilirubin,Total 0.5 MG/DL (0.20-1.00); Calcium 9.2 MG/DL (8.5-10.1); Potassium 4.6 MMOL/L (3.5-5.1); Total Protein 7.7 G/DL (6.4-8.2)
[2022-07-06] MEDS: INSULIN LISPRO 100 UNIT/ML SUBCUT SCH ×3 (06:56→19:54)
[2022-07-06] MEDS: LACTATED RINGERS 1,000 ML IV SCH ×2 (10:23→21:45)
[2022-07-06] MEDS: PANTOPRAZOLE 40 MG VIAL IV SCH ×2 (10:24→21:33)
[2022-07-06] MEDS: ZINC OXIDE PASTE 113 GM TUBE TOP SCH ×2 (16:16→21:33)
[2022-07-06] MEDS: MENTHOL/ZINC OXIDE OINT 71 GM JAR TOP SCH ×2 (16:16→21:34)
[2022-07-06] MEDS: POTASSIUM CHLORIDE IV SCH ×2 (17:32→17:51)
[2022-07-06] MEDS: INSULIN REGULAR IV SCH ×2 (17:32→17:51)
[2022-07-06] MEDS: [UNRECOGNIZED DRUG - OTHER] IV SCH ×2 (17:32→17:51)
[2022-07-06] MEDS: FAT EMULSION 20% 250 ML IV SCH ×2 (17:36→17:52)
[2022-07-07] MEDS: INSULIN LISPRO 100 UNIT/ML SUBCUT SCH ×5 (00:28→23:56)
[2022-07-07] MEDS: PANTOPRAZOLE 40 MG VIAL IV SCH ×2 (08:38→22:31)
[2022-07-07] MEDS: ZINC OXIDE PASTE 113 GM TUBE TOP SCH ×2 (08:38→22:32)
[2022-07-07] MEDS: MENTHOL/ZINC OXIDE OINT 71 GM JAR TOP SCH ×2 (08:38→22:31)
[2022-07-07 08:56] LABS: Basophils # 0.1 10*3/uL (0.0-0.2); Basophils % 0.6 % (0.0-0.8); Eosinophils # 0.2 10*3/uL (0.0-0.87); Eosinophils % 1.9 % (0.00-10.9); Hematocrit 34.8 VOL% (42.0-52.0); Hemoglobin 10.8 GM/DL (14.0-18.0); Immature Granulocytes % 0.8 %; Immature Granulocytes Absolute 0.07 #; Lymphocytes # 1.2 10*3/uL (1.4-4.0); Mean Platelet Volume 10.6 FL (9.6-12.0); Monocytes # 0.5 10*3/uL (0.11-0.8); Monocytes % 6.3 % (1.7-12.7); Neutrophils % 75.4 % (38.7-73.9); Platelet Count 190 T/CUMM (130-400); Red Cell Distribution Width 13.7 % (9.3-17.3); White Blood Count 8.2 T/CUMM (4-12)
[2022-07-07 09:12] LABS: Albumin 2.5 G/DL (3.4-5.0); Bilirubin,Total 0.4 MG/DL (0.20-1.00); Calcium 9.1 MG/DL (8.5-10.1); Osmolality,Calculated 288.2 MOS/KG (273-304); Potassium 5.5 MMOL/L (3.5-5.1); Total Protein 7.2 G/DL (6.4-8.2)
[2022-07-07] MEDS: FAT EMULSION 20% 250 ML IV SCH (18:25)
[2022-07-07] MEDS: MULTIVITAMIN IV SCH (18:27)
[2022-07-07] MEDS: POTASSIUM CHLORIDE IV SCH (18:27)
[2022-07-07] MEDS: [UNRECOGNIZED DRUG - OTHER] IV SCH (18:27)
[2022-07-07] MEDS: INSULIN REGULAR IV SCH (18:27)
[2022-07-07] MEDS: ONDANSETRON 4 MG/2 ML VIAL IV PRN (22:31)
[2022-07-07] MEDS: LACTATED RINGERS 1,000 ML IV SCH (22:33)
[2022-07-08 05:41] LABS: Basophils # 0.1 10*3/uL (0.0-0.2); Basophils % 0.7 % (0.0-0.8); Eosinophils # 0.2 10*3/uL (0.0-0.87); Eosinophils % 1.7 % (0.00-10.9); Hemoglobin 11.7 GM/DL (14.0-18.0); Immature Granulocytes % 1.1 %; Immature Granulocytes Absolute 0.12 #; Lymphocytes # 1.3 10*3/uL (1.4-4.0); Lymphocytes % 12.5 % (21.2-54.2); Mean Corpuscular HGB Conc 31.6 GM/DL (32-36); Mean Corpuscular Volume 87.3 FL (87-102); Mean Platelet Volume 10.5 FL (9.6-12.0); Monocytes # 0.8 10*3/uL (0.11-0.8); Monocytes % 7.6 % (1.7-12.7); Neutrophils % 76.4 % (38.7-73.9); Platelet Count 222 T/CUMM (130-400); Red Blood Count 4.24 MC/CUMM (3.8-5.5); Red Cell Distribution Width 13.7 % (9.3-17.3); White Blood Count 10.7 T/CUMM (4-12)
[2022-07-08] MEDS: INSULIN LISPRO 100 UNIT/ML SUBCUT SCH ×3 (05:57→18:33)
[2022-07-08 06:01] LABS: Albumin 2.7 G/DL (3.4-5.0); Bilirubin,Total 0.4 MG/DL (0.20-1.00); Calcium 9.3 MG/DL (8.5-10.1); Osmolality,Calculated 284.2 MOS/KG (273-304); Potassium 5.1 MMOL/L (3.5-5.1); Total Protein 7.9 G/DL (6.4-8.2)
[2022-07-08] MEDS: ZINC OXIDE PASTE 113 GM TUBE TOP SCH ×2 (10:57→21:45)
[2022-07-08] MEDS: LACTATED RINGERS 1,000 ML IV SCH ×2 (10:57→12:49)
[2022-07-08] MEDS: MENTHOL/ZINC OXIDE OINT 71 GM JAR TOP SCH ×2 (10:57→21:45)
[2022-07-08] MEDS: PANTOPRAZOLE 40 MG VIAL IV SCH ×2 (10:58→21:41)
[2022-07-08 11:52] LABS: Cancer Antigen 19-9 7.38 U/ML (0-35); Carcinoembryonic Antigen 56.9 NG/ML (0.0-5.0)
[2022-07-08] MEDS: FAT EMULSION 20% 250 ML IV SCH (17:49)
[2022-07-08] MEDS: POTASSIUM CHLORIDE IV SCH (17:49)
[2022-07-08] MEDS: [UNRECOGNIZED DRUG - OTHER] IV SCH (17:49)
[2022-07-08] MEDS: INSULIN REGULAR IV SCH (17:49)
[2022-07-09] MEDS: LACTATED RINGERS 1,000 ML IV SCH ×2 (00:22→21:06)
[2022-07-09] MEDS: INSULIN LISPRO 100 UNIT/ML SUBCUT SCH ×4 (03:16→17:12)
[2022-07-09 05:48] LABS: Basophils # 0.1 10*3/uL (0.0-0.2); Basophils % 0.7 % (0.0-0.8); Eosinophils # 0.2 10*3/uL (0.0-0.87); Eosinophils % 2.1 % (0.00-10.9); Hematocrit 38.8 VOL% (42.0-52.0); Immature Granulocytes % 1.1 %; Immature Granulocytes Absolute 0.11 #; Lymphocytes # 1.4 10*3/uL (1.4-4.0); Lymphocytes % 13.9 % (21.2-54.2); Mean Corpuscular HGB Conc 30.9 GM/DL (32-36); Mean Corpuscular Volume 87.8 FL (87-102); Mean Platelet Volume 10.2 FL (9.6-12.0); Monocytes # 0.6 10*3/uL (0.11-0.8); Monocytes % 5.9 % (1.7-12.7); Neutrophils % 76.3 % (38.7-73.9); Platelet Count 247 T/CUMM (130-400); Red Blood Count 4.42 MC/CUMM (3.8-5.5); Red Cell Distribution Width 13.8 % (9.3-17.3); White Blood Count 9.9 T/CUMM (4-12)
[2022-07-09 06:04] LABS: Albumin 2.8 G/DL (3.4-5.0); Bilirubin,Total 0.4 MG/DL (0.20-1.00); Calcium 8.9 MG/DL (8.5-10.1); Osmolality,Calculated 281.5 MOS/KG (273-304); Potassium 4.9 MMOL/L (3.5-5.1); Total Protein 7.9 G/DL (6.4-8.2)
[2022-07-09] MEDS: MENTHOL/ZINC OXIDE OINT 71 GM JAR TOP SCH ×2 (10:09→21:04)
[2022-07-09] MEDS: ZINC OXIDE PASTE 113 GM TUBE TOP SCH ×2 (10:09→21:04)
[2022-07-09] MEDS ORDERED: propofoL 200 MG/20 ML VIAL IV ONE (10:59)
[2022-07-09] MEDS ORDERED: LIDOCAINE 2% 5 ML VIAL ONE (10:59)
[2022-07-09] MEDS ORDERED: SUCCINYLCHOLINE 200 MG/10 ML VIAL ONE (10:59)
[2022-07-09] MEDS ORDERED: fentaNYL 100 MCG/2 ML VIAL ONE (10:59)
[2022-07-09] MEDS ORDERED: ROCURONIUM 50 MG/5 ML VIAL IV ONE ×2 (10:59→14:46)
[2022-07-09] MEDS ORDERED: SODIUM CHLORIDE 0.9% 1,000 ML IV ONE ×2 (10:59→14:12)
[2022-07-09] MEDS ORDERED: SEVOFLURANE 1 UNIT/15 MINUTE INH ONE ×2 (10:59→14:00)
[2022-07-09] MEDS ORDERED: MIDAZOLAM 2 MG/2 ML VIAL ONE (11:00)
[2022-07-09] MEDS ORDERED: ROPIVACAINE 0.5% 30 ML VIAL ONE (11:13)
[2022-07-09] MEDS: PANTOPRAZOLE 40 MG VIAL IV SCH ×2 (11:13→21:04)
[2022-07-09] MEDS ORDERED: HEPARIN/NACL 0.9% 2 UNITS/ML 1,000 UNIT/500 ML BAG IV ONE (11:24)
[2022-07-09] MEDS ORDERED: PHENYLEPHRINE 1 MG/10 ML SYRINGE IV ONE ×3 (11:32→13:17)
[2022-07-09] MEDS ORDERED: LIDOCAINE 1% 5 ML VIAL ONE (11:38)
[2022-07-09] MEDS ORDERED: ETOMIDATE 40 MG/20 ML VIAL IV ONE (12:06)
[2022-07-09] MEDS ORDERED: ALBUMIN 5% 25.0 GM/500 ML VIAL IV ONE (13:00)
[2022-07-09] MEDS ORDERED: SODIUM CHLORIDE 0.9% 250 ML IV ONE ×2 (13:12→13:17)
[2022-07-09] MEDS ORDERED: PHENYLEPHRINE 10 MG/1 ML VIAL IV ONE (13:13)
[2022-07-09] MEDS ORDERED: NEOSTIGMINE 10 MG/10 ML VIAL ONE (13:53)
[2022-07-09] MEDS ORDERED: GLYCOPYRROLATE 0.4 MG/2 ML VIAL ONE (13:53)
[2022-07-09] MEDS ORDERED: ONDANSETRON 4 MG/2 ML VIAL ONE (13:54)
[2022-07-09] MEDS ORDERED: LABETALOL 20 MG/4 ML SYRINGE IV ONE (14:01)
[2022-07-09] MEDS ORDERED: SUGAMMADEX 200 MG/2 ML VIAL IV ONE (14:09)
[2022-07-09] MEDS ORDERED: POTASSIUM CHLORIDE IV SCH (17:00)
[2022-07-09] MEDS ORDERED: MULTIVITAMIN IV SCH (17:00)
[2022-07-09] MEDS ORDERED: [UNRECOGNIZED DRUG - OTHER] IV SCH (17:00)
[2022-07-09] MEDS ORDERED: INSULIN REGULAR IV SCH (17:00)
[2022-07-09] MEDS: FAT EMULSION 20% 250 ML IV SCH (17:03)
[2022-07-10] MEDS: INSULIN LISPRO 100 UNIT/ML SUBCUT SCH ×4 (00:38→17:38)
[2022-07-10 06:25] LABS: Basophils # 0.1 10*3/uL (0.0-0.2); Basophils % 0.4 % (0.0-0.8); Eosinophils # 0.1 10*3/uL (0.0-0.87); Hematocrit 27.8 VOL% (42.0-52.0); Immature Granulocytes % 0.6 %; Immature Granulocytes Absolute 0.07 #; Lymphocytes # 0.6 10*3/uL (1.4-4.0); Lymphocytes % 4.8 % (21.2-54.2); Mean Corpuscular HGB Conc 32.4 GM/DL (32-36); Mean Corpuscular Volume 87.1 FL (87-102); Mean Platelet Volume 10.4 FL (9.6-12.0); Monocytes # 0.9 10*3/uL (0.11-0.8); Monocytes % 6.8 % (1.7-12.7); Neutrophils % 86.4 % (38.7-73.9); Platelet Count 179 T/CUMM (130-400); Red Blood Count 3.19 MC/CUMM (3.8-5.5); Red Cell Distribution Width 13.7 % (9.3-17.3); White Blood Count 12.5 T/CUMM (4-12)
[2022-07-10 06:45] LABS: Albumin 2.5 G/DL (3.4-5.0); Bilirubin,Total 0.6 MG/DL (0.20-1.00); Calcium 7.7 MG/DL (8.5-10.1); Potassium 5.1 MMOL/L (3.5-5.1); Total Protein 6.1 G/DL (6.4-8.2)
[2022-07-10 06:52] LABS: Lymphocytes 14 % (20-55); Total Cells Counted 100
[2022-07-10 06:53] LABS: Platelet Estimate Normal
[2022-07-10] MEDS: PANTOPRAZOLE 40 MG VIAL IV SCH ×2 (09:37→20:29)
[2022-07-10] MEDS: LACTATED RINGERS 1,000 ML IV SCH ×2 (09:37→22:14)
[2022-07-10] MEDS: MENTHOL/ZINC OXIDE OINT 71 GM JAR TOP SCH ×2 (09:39→20:28)
[2022-07-10] MEDS: ZINC OXIDE PASTE 113 GM TUBE TOP SCH ×2 (09:39→20:28)
[2022-07-10] MEDS: HYDROCORTISONE 100 MG VIAL IV SCH ×2 (12:20→22:14)
[2022-07-10] MEDS: [UNRECOGNIZED DRUG - OTHER] IV SCH (17:36)
[2022-07-10] MEDS: POTASSIUM CHLORIDE IV SCH (17:36)
[2022-07-10] MEDS: FAT EMULSION 20% 250 ML IV SCH (17:36)
[2022-07-10] MEDS: INSULIN REGULAR IV SCH (17:36)
[2022-07-11] MEDS: INSULIN LISPRO 100 UNIT/ML SUBCUT SCH ×4 (01:51→20:06)
[2022-07-11 05:29] LABS: Basophils % 0.2 % (0.0-0.8); Eosinophils # 0.1 10*3/uL (0.0-0.87); Eosinophils % 0.8 % (0.00-10.9); Hematocrit 25.8 VOL% (42.0-52.0); Hemoglobin 8.1 GM/DL (14.0-18.0); Immature Granulocytes % 0.8 %; Lymphocytes # 0.8 10*3/uL (1.4-4.0); Lymphocytes % 5.9 % (21.2-54.2); Mean Corpuscular HGB Conc 31.4 GM/DL (32-36); Mean Platelet Volume 10.3 FL (9.6-12.0); Monocytes # 0.7 10*3/uL (0.11-0.8); Monocytes % 4.9 % (1.7-12.7); Neutrophils % 87.4 % (38.7-73.9); Platelet Count 171 T/CUMM (130-400); Red Cell Distribution Width 13.9 % (9.3-17.3); White Blood Count 13.3 T/CUMM (4-12)
[2022-07-11 05:59] LABS: Calcium 7.9 MG/DL (8.5-10.1); Potassium 4.3 MMOL/L (3.5-5.1)
[2022-07-11 06:06] LABS: Albumin 2.4 G/DL (3.4-5.0); Bilirubin,Total 0.6 MG/DL (0.20-1.00); Calcium 8.2 MG/DL (8.5-10.1); Osmolality,Calculated 273.4 MOS/KG (273-304); Potassium 4.2 MMOL/L (3.5-5.1); Total Protein 6.2 G/DL (6.4-8.2)
[2022-07-11] MEDS: ZINC OXIDE PASTE 113 GM TUBE TOP SCH ×2 (09:18→21:08)
[2022-07-11] MEDS: PANTOPRAZOLE 40 MG VIAL IV SCH ×2 (09:18→21:04)
[2022-07-11] MEDS: MENTHOL/ZINC OXIDE OINT 71 GM JAR TOP SCH ×2 (09:18→21:08)
[2022-07-11] MEDS: HYDROCORTISONE 100 MG VIAL IV SCH ×2 (09:40→21:46)
[2022-07-11] MEDS: LACTATED RINGERS 1,000 ML IV SCH ×2 (13:04→21:48)
[2022-07-11] MEDS: POTASSIUM CHLORIDE IV SCH (16:20)
[2022-07-11] MEDS: INSULIN REGULAR IV SCH (16:20)
[2022-07-11] MEDS: [UNRECOGNIZED DRUG - OTHER] IV SCH (16:20)
[2022-07-11] MEDS: FAT EMULSION 20% 250 ML IV SCH (16:22)
[2022-07-12] MEDS: INSULIN LISPRO 100 UNIT/ML SUBCUT SCH ×4 (01:28→18:13)
[2022-07-12 05:28] LABS: Basophils % 0.3 % (0.0-0.8); Eosinophils % 0.3 % (0.00-10.9); Hematocrit 24.9 VOL% (42.0-52.0); Hemoglobin 7.9 GM/DL (14.0-18.0); Immature Granulocytes % 1.7 %; Lymphocytes # 0.7 10*3/uL (1.4-4.0); Lymphocytes % 5.5 % (21.2-54.2); Mean Corpuscular HGB Conc 31.7 GM/DL (32-36); Mean Corpuscular Volume 86.2 FL (87-102); Mean Platelet Volume 9.9 FL (9.6-12.0); Monocytes # 0.4 10*3/uL (0.11-0.8); Monocytes % 3.1 % (1.7-12.7); Neutrophils % 89.1 % (38.7-73.9); Platelet Count 200 T/CUMM (130-400); Red Blood Count 2.89 MC/CUMM (3.8-5.5); Red Cell Distribution Width 13.8 % (9.3-17.3); White Blood Count 11.8 T/CUMM (4-12)
[2022-07-12 07:20] LABS: Albumin 2.3 G/DL (3.4-5.0); Bilirubin,Total 0.6 MG/DL (0.20-1.00); Calcium 8.2 MG/DL (8.5-10.1); Potassium 4.3 MMOL/L (3.5-5.1); Total Protein 6.3 G/DL (6.4-8.2)
[2022-07-12 07:22] LABS: Phosphorous 1.4 MG/DL (2.5-4.9)
[2022-07-12] MEDS ORDERED: SODIUM PHOSPHATE INJ 20.2 MMOL in SODIUM CHLORIDE 0.9% 250 ML IV ONE (09:21)
[2022-07-12] MEDS ORDERED: MAGNESIUM SULF RIDER 4 GM/100 ML PREMIX IV PRN (09:21)
[2022-07-12] MEDS ORDERED: MAGNESIUM SULF RIDER 2 GM/50 ML PREMIX IV PRN (09:21)
[2022-07-12] MEDS: LACTATED RINGERS 1,000 ML IV SCH ×2 (09:45→22:05)
[2022-07-12] MEDS: PANTOPRAZOLE 40 MG VIAL IV SCH ×2 (09:47→22:00)
[2022-07-12] MEDS: HYDROCORTISONE 100 MG VIAL IV SCH ×2 (09:47→22:00)
[2022-07-12] MEDS: ZINC OXIDE PASTE 113 GM TUBE TOP SCH ×2 (10:22→22:00)
[2022-07-12] MEDS: MENTHOL/ZINC OXIDE OINT 71 GM JAR TOP SCH ×2 (10:22→22:01)
[2022-07-12] MEDS: FAT EMULSION 20% 250 ML IV SCH (18:12)
[2022-07-12] MEDS: INSULIN REGULAR IV SCH (18:13)
[2022-07-12] MEDS: METOCLOPRAMIDE 10 MG/2 ML VIAL IV SCH (18:13)
[2022-07-12] MEDS: [UNRECOGNIZED DRUG - OTHER] IV SCH (18:13)
[2022-07-12] MEDS: MULTIVITAMIN IV SCH (18:13)
[2022-07-13] MEDS: METOCLOPRAMIDE 10 MG/2 ML VIAL IV SCH ×4 (00:42→17:53)
[2022-07-13] MEDS: INSULIN LISPRO 100 UNIT/ML SUBCUT SCH ×4 (00:42→17:53)
[2022-07-13 06:05] LABS: Basophils % 0.4 % (0.0-0.8); Eosinophils % 0.3 % (0.00-10.9); Hematocrit 23.6 VOL% (42.0-52.0); Hemoglobin 7.5 GM/DL (14.0-18.0); Immature Granulocytes % 2.3 %; Immature Granulocytes Absolute 0.24 #; Lymphocytes # 0.7 10*3/uL (1.4-4.0); Lymphocytes % 6.2 % (21.2-54.2); Mean Corpuscular HGB Conc 31.8 GM/DL (32-36); Mean Corpuscular Volume 84.6 FL (87-102); Mean Platelet Volume 9.7 FL (9.6-12.0); Monocytes # 0.4 10*3/uL (0.11-0.8); Monocytes % 3.6 % (1.7-12.7); NRBC # 0.03 10*3/uL; Neutrophils % 87.2 % (38.7-73.9); Platelet Count 263 T/CUMM (130-400); Red Blood Count 2.79 MC/CUMM (3.8-5.5); Red Cell Distribution Width 14.1 % (9.3-17.3); White Blood Count 10.4 T/CUMM (4-12)
[2022-07-13 06:31] LABS: Albumin 2.2 G/DL (3.4-5.0); Bilirubin,Total 0.5 MG/DL (0.20-1.00); Calcium 8.3 MG/DL (8.5-10.1); Osmolality,Calculated 279.8 MOS/KG (273-304); Phosphorous 2.6 MG/DL (2.5-4.9); Potassium 3.7 MMOL/L (3.5-5.1); Total Protein 6.3 G/DL (6.4-8.2)
[2022-07-13] MEDS ORDERED: SODIUM PHOSPHATE INJ 20.2 MMOL in SODIUM CHLORIDE 0.9% 250 ML IV ONE (09:11)
[2022-07-13] MEDS: ZINC OXIDE PASTE 113 GM TUBE TOP SCH ×2 (09:48→21:39)
[2022-07-13] MEDS: MENTHOL/ZINC OXIDE OINT 71 GM JAR TOP SCH ×2 (09:48→21:39)
[2022-07-13] MEDS: PANTOPRAZOLE 40 MG VIAL IV SCH ×2 (09:49→21:41)
[2022-07-13] MEDS: HYDROCORTISONE 100 MG VIAL IV SCH ×2 (09:49→22:07)
[2022-07-13] MEDS: LACTATED RINGERS 1,000 ML IV SCH (14:55)
[2022-07-13] MEDS: MULTIVITAMIN IV SCH (17:53)
[2022-07-13] MEDS: INSULIN REGULAR IV SCH (17:53)
[2022-07-13] MEDS: [UNRECOGNIZED DRUG - OTHER] IV SCH (17:53)
[2022-07-13] MEDS: FAT EMULSION 20% 250 ML IV SCH (17:53)
[2022-07-14] MEDS: METOCLOPRAMIDE 10 MG/2 ML VIAL IV SCH ×4 (00:51→18:53)
[2022-07-14] MEDS: INSULIN LISPRO 100 UNIT/ML SUBCUT SCH ×4 (01:09→18:49)
[2022-07-14] MEDS: LACTATED RINGERS 1,000 ML IV SCH ×2 (03:23→17:17)
[2022-07-14 05:14] LABS: Basophils # 0.1 10*3/uL (0.0-0.2); Basophils % 0.5 % (0.0-0.8); Eosinophils # 0.1 10*3/uL (0.0-0.87); Eosinophils % 0.6 % (0.00-10.9); Hematocrit 23.8 VOL% (42.0-52.0); Hemoglobin 7.7 GM/DL (14.0-18.0); Immature Granulocytes % 4.1 %; Immature Granulocytes Absolute 0.45 #; Lymphocytes # 0.9 10*3/uL (1.4-4.0); Lymphocytes % 8.2 % (21.2-54.2); Mean Corpuscular HGB Conc 32.4 GM/DL (32-36); Mean Corpuscular Volume 85.9 FL (87-102); Mean Platelet Volume 9.2 FL (9.6-12.0); Monocytes # 0.6 10*3/uL (0.11-0.8); Monocytes % 5.3 % (1.7-12.7); NRBC # 0.07 10*3/uL; Neutrophils % 81.3 % (38.7-73.9); Platelet Count 243 T/CUMM (130-400); Red Blood Count 2.77 MC/CUMM (3.8-5.5); Red Cell Distribution Width 14.3 % (9.3-17.3); White Blood Count 10.9 T/CUMM (4-12)
[2022-07-14 05:35] LABS: Albumin 2.3 G/DL (3.4-5.0); Bilirubin,Total 0.7 MG/DL (0.20-1.00); Calcium 8.6 MG/DL (8.5-10.1); Total Protein 5.9 G/DL (6.4-8.2)
[2022-07-14] MEDS: HYDROCORTISONE 100 MG VIAL IV SCH ×2 (10:22→21:21)
[2022-07-14] MEDS: PANTOPRAZOLE 40 MG VIAL IV SCH ×2 (10:23→21:21)
[2022-07-14] MEDS: ZINC OXIDE PASTE 113 GM TUBE TOP SCH ×2 (10:27→21:19)
[2022-07-14] MEDS: MENTHOL/ZINC OXIDE OINT 71 GM JAR TOP SCH ×2 (10:29→21:16)
[2022-07-14] MEDS: INSULIN REGULAR IV SCH (15:37)
[2022-07-14] MEDS: [UNRECOGNIZED DRUG - OTHER] IV SCH (15:37)
[2022-07-14] MEDS: MULTIVITAMIN IV SCH (15:37)
[2022-07-14] MEDS: ERYTHROMYCIN INJ 250 MG in SODIUM CHLORIDE 0.9% 100 ML IV SCH ×2 (15:45→23:07)
[2022-07-14] MEDS: FAT EMULSION 20% 250 ML IV SCH (17:06)
[2022-07-15] MEDS: METOCLOPRAMIDE 10 MG/2 ML VIAL IV SCH ×4 (00:55→19:00)
[2022-07-15] MEDS: INSULIN LISPRO 100 UNIT/ML SUBCUT SCH ×4 (01:00→18:48)
[2022-07-15 05:36] LABS: Basophils # 0.1 10*3/uL (0.0-0.2); Basophils % 0.5 % (0.0-0.8); Eosinophils # 0.1 10*3/uL (0.0-0.87); Eosinophils % 1.1 % (0.00-10.9); Hematocrit 22.6 VOL% (42.0-52.0); Hemoglobin 7.1 GM/DL (14.0-18.0); Immature Granulocytes Absolute 0.79 #; Lymphocytes # 1.3 10*3/uL (1.4-4.0); Lymphocytes % 11.5 % (21.2-54.2); Mean Corpuscular HGB Conc 31.4 GM/DL (32-36); Mean Corpuscular Volume 86.6 FL (87-102); Mean Platelet Volume 9.1 FL (9.6-12.0); Monocytes # 0.7 10*3/uL (0.11-0.8); Monocytes % 5.8 % (1.7-12.7); NRBC # 0.13 10*3/uL; Neutrophils % 74.1 % (38.7-73.9); Platelet Count 225 T/CUMM (130-400); Red Blood Count 2.61 MC/CUMM (3.8-5.5); Red Cell Distribution Width 14.5 % (9.3-17.3); White Blood Count 11.3 T/CUMM (4-12)
[2022-07-15] MEDS: LACTATED RINGERS 1,000 ML IV SCH (05:44)
[2022-07-15] MEDS: ERYTHROMYCIN INJ 250 MG in SODIUM CHLORIDE 0.9% 100 ML IV SCH ×2 (05:44→21:32)
[2022-07-15 05:55] LABS: Osmolality,Calculated 282.5 MOS/KG (273-304); Phosphorous 2.6 MG/DL (2.5-4.9); Potassium 3.8 MMOL/L (3.5-5.1)
[2022-07-15 05:59] LABS: Albumin 2.1 G/DL (3.4-5.0); Bilirubin,Total 0.6 MG/DL (0.20-1.00); Calcium 8.3 MG/DL (8.5-10.1); Osmolality,Calculated 282.5 MOS/KG (273-304); Potassium 3.7 MMOL/L (3.5-5.1); Total Protein 5.8 G/DL (6.4-8.2)
[2022-07-15 06:08] LABS: Eosinophils 1 % (0-10); Lymphocytes 9 % (20-55); Total Cells Counted 100
[2022-07-15 06:09] LABS: Hypochromia Slight; Microcytosis Slight; Platelet Estimate Adequate
[2022-07-15] MEDS ORDERED: SODIUM CHLORIDE 0.9% 1,000 ML IV PRN (09:02)
[2022-07-15] MEDS: HYDROCORTISONE 100 MG VIAL IV SCH ×2 (09:02→21:30)
[2022-07-15] MEDS: PANTOPRAZOLE 40 MG VIAL IV SCH ×2 (09:04→21:30)
[2022-07-15] MEDS: ZINC OXIDE PASTE 113 GM TUBE TOP SCH ×2 (09:05→21:29)
[2022-07-15] MEDS: MENTHOL/ZINC OXIDE OINT 71 GM JAR TOP SCH ×2 (09:05→21:29)
[2022-07-15] MEDS: INSULIN REGULAR IV SCH (17:04)
[2022-07-15] MEDS: MULTIVITAMIN IV SCH (17:04)
[2022-07-15] MEDS: [UNRECOGNIZED DRUG - OTHER] IV SCH (17:04)
[2022-07-15] MEDS: FAT EMULSION 20% 250 ML IV SCH (18:01)
[2022-07-16] MEDS: METOCLOPRAMIDE 10 MG/2 ML VIAL IV SCH ×4 (00:55→17:26)
[2022-07-16] MEDS: INSULIN LISPRO 100 UNIT/ML SUBCUT SCH ×4 (01:15→17:26)
[2022-07-16] MEDS: LACTATED RINGERS 1,000 ML IV SCH ×3 (04:13→18:09)
[2022-07-16] MEDS: ERYTHROMYCIN INJ 250 MG in SODIUM CHLORIDE 0.9% 100 ML IV SCH ×3 (04:13→22:00)
[2022-07-16 05:42] LABS: Basophils # 0.1 10*3/uL (0.0-0.2); Basophils % 0.5 % (0.0-0.8); Eosinophils # 0.1 10*3/uL (0.0-0.87); Eosinophils % 0.8 % (0.00-10.9); Hematocrit 28.9 VOL% (42.0-52.0); Hemoglobin 9.4 GM/DL (14.0-18.0); Immature Granulocytes % 6.5 %; Immature Granulocytes Absolute 0.71 #; Lymphocytes # 1.1 10*3/uL (1.4-4.0); Lymphocytes % 9.6 % (21.2-54.2); Mean Corpuscular HGB Conc 32.5 GM/DL (32-36); Mean Corpuscular Volume 87.6 FL (87-102); Mean Platelet Volume 9.4 FL (9.6-12.0); Monocytes # 0.6 10*3/uL (0.11-0.8); Monocytes % 5.4 % (1.7-12.7); NRBC # 0.12 10*3/uL; Neutrophils % 77.2 % (38.7-73.9); Platelet Count 235 T/CUMM (130-400); Red Cell Distribution Width 14.5 % (9.3-17.3); White Blood Count 10.9 T/CUMM (4-12)
[2022-07-16 05:44] LABS: Albumin 2.1 G/DL (3.4-5.0); Bilirubin,Total 0.6 MG/DL (0.20-1.00); Calcium 8.2 MG/DL (8.5-10.1); Osmolality,Calculated 280.7 MOS/KG (273-304); Phosphorous 2.9 MG/DL (2.5-4.9); Potassium 3.8 MMOL/L (3.5-5.1); Total Protein 5.7 G/DL (6.4-8.2)
[2022-07-16 06:28] LABS: Anisocytosis 1+; Band Neutrophils 3 % (0-10); Eosinophils 1 % (0-10); Lymphocytes 6 % (20-55); Metamyelocytes 1 %; Nucleated Red Blood Cells 3 /100 WBC (0-5); Ovalocytes Few; Platelet Estimate Normal; Total Cells Counted 100
[2022-07-16 06:29] LABS: Burr Cells Few; Poikilocytosis Slight
[2022-07-16] MEDS: PANTOPRAZOLE 40 MG VIAL IV SCH ×2 (09:03→21:58)
[2022-07-16] MEDS: MENTHOL/ZINC OXIDE OINT 71 GM JAR TOP SCH ×2 (09:04→21:57)
[2022-07-16] MEDS: ZINC OXIDE PASTE 113 GM TUBE TOP SCH ×2 (09:04→21:56)
[2022-07-16] MEDS: HYDROCORTISONE 100 MG VIAL IV SCH ×2 (09:04→21:56)
[2022-07-16] MEDS: FAT EMULSION 20% 250 ML IV SCH (17:26)
[2022-07-16] MEDS: MULTIVITAMIN IV SCH (17:26)
[2022-07-16] MEDS: INSULIN REGULAR IV SCH (17:26)
[2022-07-16] MEDS: [UNRECOGNIZED DRUG - OTHER] IV SCH (17:26)
[2022-07-17] MEDS: INSULIN LISPRO 100 UNIT/ML SUBCUT SCH ×4 (00:37→19:25)
[2022-07-17] MEDS: METOCLOPRAMIDE 10 MG/2 ML VIAL IV SCH ×4 (02:14→17:50)
[2022-07-17] MEDS: ERYTHROMYCIN INJ 250 MG in SODIUM CHLORIDE 0.9% 100 ML IV SCH ×3 (05:58→20:50)
[2022-07-17] MEDS: HYDROCORTISONE 100 MG VIAL IV SCH ×2 (08:30→20:48)
[2022-07-17] MEDS: PANTOPRAZOLE 40 MG VIAL IV SCH ×2 (08:30→20:47)
[2022-07-17] MEDS: LACTATED RINGERS 1,000 ML IV SCH ×2 (08:31→21:07)
[2022-07-17] MEDS: MENTHOL/ZINC OXIDE OINT 71 GM JAR TOP SCH ×2 (11:04→20:48)
[2022-07-17] MEDS: ZINC OXIDE PASTE 113 GM TUBE TOP SCH ×2 (11:04→20:49)
[2022-07-17] MEDS: [UNRECOGNIZED DRUG - OTHER] IV SCH (17:12)
[2022-07-17] MEDS: MULTIVITAMIN IV SCH (17:12)
[2022-07-17] MEDS: INSULIN REGULAR IV SCH (17:12)
[2022-07-17] MEDS: FAT EMULSION 20% 250 ML IV SCH (18:53)
[2022-07-18] MEDS: METOCLOPRAMIDE 10 MG/2 ML VIAL IV SCH ×2 (00:41→06:27)
[2022-07-18] MEDS: ERYTHROMYCIN INJ 250 MG in SODIUM CHLORIDE 0.9% 100 ML IV SCH ×3 (04:44→21:07)
[2022-07-18 05:27] LABS: Hematocrit 27.8 VOL% (42.0-52.0); Hemoglobin 8.9 GM/DL (14.0-18.0)
[2022-07-18 05:46] LABS: Calcium 7.4 MG/DL (8.5-10.1); Osmolality,Calculated 280.5 MOS/KG (273-304); Potassium 3.3 MMOL/L (3.5-5.1)
[2022-07-18] MEDS: INSULIN LISPRO 100 UNIT/ML SUBCUT SCH ×4 (06:22→18:17)
[2022-07-18] MEDS ORDERED: METOCLOPRAMIDE 10 MG/2 ML VIAL IV PRN (08:57)
[2022-07-18] MEDS: HYDROCORTISONE 100 MG VIAL IV SCH ×2 (09:26→21:08)
[2022-07-18] MEDS: PANTOPRAZOLE 40 MG VIAL IV SCH ×2 (09:27→21:08)
[2022-07-18] MEDS: MENTHOL/ZINC OXIDE OINT 71 GM JAR TOP SCH ×2 (09:27→21:11)
[2022-07-18] MEDS: ZINC OXIDE PASTE 113 GM TUBE TOP SCH ×2 (09:28→21:11)
[2022-07-18] MEDS: LACTATED RINGERS 1,000 ML IV SCH (09:28)
[2022-07-18] MEDS ORDERED: POTASSIUM BICARB EFFERVESCENT 20 MEQ TAB.EFF PO ONE (11:43)
[2022-07-19] MEDS: INSULIN LISPRO 100 UNIT/ML SUBCUT SCH ×2 (02:28→07:35)
[2022-07-19] MEDS: ERYTHROMYCIN INJ 250 MG in SODIUM CHLORIDE 0.9% 100 ML IV SCH (05:45)
[2022-07-19] MEDS: PANTOPRAZOLE 40 MG VIAL IV SCH (09:40)
[2022-07-19] MEDS: ZINC OXIDE PASTE 113 GM TUBE TOP SCH (10:00)
[2022-07-19] MEDS: HYDROCORTISONE 100 MG VIAL IV SCH (10:00)
[2022-07-19] MEDS: MENTHOL/ZINC OXIDE OINT 71 GM JAR TOP SCH (10:00)
[2022-07-19 12:02] VITALS: BP 93/47
== END 2022-07-19 12:42 | disposition hospice, inpatient (51) | DRG 229 ==
LOC: N.ED 15:18 → N.EDINP 18:49 → SUATTDRO 18:49 → N.5E 06-26 16:45
PROVIDERS: ADMIT Internal Medicine; ATTEND Internal Medicine